=== PATIENT | female | born 2000 | race Caucasian/White ===

== ENCOUNTER 2024-12-11 13:41 | Outpatient (AMB) | payer OTHER, SELFPAY ==
--- NOTE | 2024-12-11 13:48 | A.OFFPC_ITS ---
Vital Signs 12/11/24 13:53 Height 5 ft 4 in Weight 166 lb BMI 28.5 BP 108/67 Blood Pressure Location Lt brachial Position Sitting Respiration 12 Pulse 60 Pulse Source Pulse Oximeter Temp 97.2 F Temp Source Oral Pulse Oximetry (%) 99 Oxygen Delivery Method Room Air Intake Visit Reasons: est care/ PE Intake Note: New patient to establish care and cpe Oncology Transplant Network Manager Required: No Allergies No Known Allergies Allergy (Verified 12/11/24 13:59) Medication List - Last Reconciled 12/10/24 by NITO GuzmanP- aspirin 81 mg PO DAILY ferrous gluconate 324 mg PO Q OTHER DAY progesterone micronized 200 mg vaginal BEDTIME Tobacco use date assessed: 12/11/24 Dental Screening Dental Screen Date: 12/11/24 Did you have a dental visit in the last 12 months?: Yes Did you have a dental problem in the last 6 months where you did not have access to dental care?: No Was dental information given to patient?: Patient has dentist HPI HPI Comments History of Present Illness Details 24 yo F with Iron Def Anemia,hx of heada ches, currently preg (due January 17) Social: administrative support clerk, , . Surgery: tonsillectomy in childhood Fhx: Reports family healthy. Health Maintenance Tdap advised to ask Ob Pap Nikki, has never had one; will have her first one after of dtr Specialists [facility] Nikki Here today to est care for a CPE No records, previous care in [place] Conchita Mistry [employer]IC[employer] Currently : w/ first baby, girl, Lu Owen 01/17/25; has a short cervix. Iron def anemia - taking Iron w/o GI side effects HX of headaches, related to stress; no current issues Optho - does not wear glasses Skin: no issues Developed a sore throat and sneezing 2 days ago. Tx w/ gargle w/ + effect. ROS Constitutional: Denies fever. Skin: Denies rash. Eye: Denies eye pain. ENMT: Denies nasal congestion. Respiratory: Denies shortness of breath and cough. Gastrointestinal: Denies nausea, vomiting or abdominal pain. Cardiovascular: Denies chest pain and syncope. Genitourinary: Denies dysuria. Musculoskeletal: Denies back pain and extremity pain. Neurologic: Denies headaches, confusion, and weakness. Psychiatric: Denies suicidal thoughts and substance abuse. Allergy/ Immunologic: Denies impaired immunity. Exam General: Well developed, well nourished, in no acute distress. Appears stated age. Head: Normocephalic, atraumatic. Eyes: Pupils are equal, round and reactive to light and accommodation. Conju nctivae are clear. Vision grossly normal. Ears: TMs clear AU, EACS WNL Nose: Patent, without discharge. Mouth: There are no ulcers or lesions noted. No inflammation, no post nasal drip, no plaques nor exudates. Neck: Supple, no adenopathy or thyromegaly. Lungs: Clear to auscultation bilaterally. No rales, rhonchi or wheeze noted. Good air flow in all leone. Heart: Regular rate and rhythm. No murmurs, click, rubs or gallops are noted. Abdomen: Gravid abd, Bowel sounds present in all quadrants. The abdomen is soft, nontender, with no masses or organomegaly noted. No hernias are noted. Musculoskeletal: Joints are nontender, without swelling, redness, or effusions. Range of motion is observed to be normal. Pulses: Peripheral pulses are equal and palpable bilaterally. Extremities: No clubbing, cyanosis nor edema is noted. Neurologic: Gait and station normal. Cranial Nerves 2-12 intact. Motor strength grossly symmetrical and intact. No sensory loss. Balance normal. Skin: No rashes, ulcers, or lesions noted. Turgor is good. Skin color is good. Hair and nails are without abnormalities. Psych: Normal eye contact, affect and mood appropriate, and normal interactions. Patient is alert and appropriate to context. Plan: Get records Ask [facility] about Tdap Get pap as scheduled Supportive care for sore throat, try claritin. Seek care if worsening RTO about 12 weeks after to check in, sooner if needed. An additional 30 minutes was spent addressing the problem(s) noted at todays visit. This includes time spent before the visit reviewing the chart, time spent during the visit, and time spent after the visit on documentation reviewing laboratory results, diagnostic imaging, medications, performing a medically necessary evaluation, counseling on diagnoses, care coordination, ordering appropriate tests, ordering appropriate medications, review of tests performed by other providers, reporting test results with the patient, communication with other healthcare providers. [facility] Medical History (Updated 12/11/24 @ 14:18 by Deborah Galeano [facility]) Headache No pertinent family history Surgical History (Updated 12/11/24 @ 13:57 by Susan Brambila MA) Hx of tonsillectomy (~2003) Social History Household Members: Spouse Both parents involved: No Caregiver staying overnight: No Housing: Apartment Are you a primary critical care registered nurse to a significant other at home: No Do you presently have visiting nurse or other home services: No 75 years or older and lives alone: No Alcohol intake: never Patient Tobacco Use Status: Never used Tobacco e-Cigarette/Vaping Use: Never Used Second Hand Smoke Exposure: No Current occupational status: employed Current occupation: hospce nurse Cognitive needs: No Hearing needs: No Vision needs: No Questionnaire PHQ-9 Over the last 2 weeks, how often have you been bothered by any of the following problems? 1. Little interest or pleasure in doing things: not at all 2. Feeling down, depressed, or hopeless: not at all 3. Trouble falling or staying asleep, or sleeping too much: not at all 4. Feeling tired or having little energy: not at all 5. Poor appetite or overeating: not at all 6. Feeling bad about yourself - or that you are a failure or have let yourself or your family down: not at all 7. Trouble concentrating on things, such as reading the newspaper or watching television: not at all 8. Moving or speaking so slowly that other people could have noticed. Or the opposite - being so fidgety or restless that you have been moving around a lot more than usual: not at all 9. Thoughts that you would be better off or of hurting yourself in some way: not at all Total score: 0 Depression Screening Interpretation: Negative Depression Screening Done: Yes 53815 - PHQ-9 Billing: Yes Source: Developed by Drs. Clay Stover, Sarahi Tapia, Paulino Delgado and colleagues, with an educational maria de jesus from [employer]. Thrive Questionnaire Date Thrive assessed: 12/11/24 I am a: Patient What is your living situation today?: I have a steady place to live Within the past 12 months, did the food you bought not last and you didn't have the money to get more?: Never true Within the past 12 months, did you worry whether your food would run out before you got money to buy more?: Never true Do you have trouble paying for medicines?: No Do you have trouble getting transportation to medical appointments?: No Do you have trouble paying your heating and electricity bill?: No Do you have trouble taking care of your child, family member or friend?: No Do you have trouble with day-to-day activities such as bathing, preparing meals, shopping, managing finances, etc.?: No Are you currently unemployed and looking for a job?: No Are you interested in more education?: No Please select the resources that you would like help with: None Currently or been in a relationship where the following occur: No concerns repo rted THRIVE Score: 0 AUDIT C Alcohol Use Questionnaire (AUDIT-C) 1. How often do you have a drink containing alcohol?: Never 3. How often do you have six or more drinks on one occasion?: Never Total Score: 0 Score Reviewed/Action Taken: Yes SARA-7 AMB Questionnaire SARA-7 Date SARA - 7 assessed: 12/11/24 Feeling nervous, anxious, or on edge: 0 = Not at all Not being able to stop or control worryin = Not at all Worrying too much about different things: 0 = Not at all Trouble relaxin = Not at all Being so restless that it is hard to sit still: 0 = Not at all Becoming easily annoyed or irritable: 0 = Not at all Feeling afraid as if something awful might happen: 0 = Not at all Total SARA-7 score (0-4 normal; 5-9 mild; 10-14 moderate; 15-21 severe): 0 Source: Developed by Drs. Clay Stover, Sarahi Tapia, Paulino Delgado and colleagues, with an educational maria de jesus from [employer]. SARA-7 Assessment Billing SARA-7 Assessment Tool: SARA-7 Assessment 00893 Physical exam (Primary Care) Tobacco/Smoking Status: Tobacco use Status Tobacco use date assessed 12/11/24 12/11/24 13:52 Patient Tobacco Use Status Never used Tobacco 12/11/24 13:52 e-Cigarette/Vaping Use Never Used 12/11/24 13:52 PHQ-9: PHQ-9 Score PHQ-9: Total score 0 12/11/24 13:52 Depression Screening Interpretation: Negative Thrive Assessment: Date of Thrive Assessment Date Thrive assessed 12/11/24 12/11/24 13:52 Currently or been in a relationship where the following occur: No concerns reported Coding Level of Care Code New Pt Level 3 (55900) New Pt Prev Care 18-39yr(21808 Diagnoses Encounter to establish care Z76.89 Iron deficiency anemia, unspecified iron deficiency anemia type D50.9 Iron deficiency anemia type: unspecified iron deficiency and not yet delivered Z34.90 History of headache Z87.898 Pharyngitis, unspecified etiology J02.9 Pharyngitis/tonsillitis etiology: unspecified etiology Encounter for general adult medical examination with abnormal findings Z00.01 Additional Codes SARA-7 Assessment Billing - SARA-7 Assessment Tool: SARA-7 Assessment 07926 ([id number]) PHQ-9 - 81528 - PHQ-9 Billing: Yes ([id number]) Assessment & Plan Assessment & Plan (1) Encounter to establish care: Code(s): Z76.89 - Persons encountering health services in other specified circumstances (2) Iron deficiency anemia: Code(s): D50.9 - Iron deficiency anemia, unspecified Category: Medical Qualifiers: Iron deficiency anemia type: unspecified iron deficiency Qualified Code(s): D50.9 - Iron deficiency anemia, unspecified (3) and not yet delivered: Code(s): Z34.90 - Encounter for supervision of normal , unspecified, unspecified trimester Category: Medical (4) History of headache: Code(s): Z87.898 - Personal history of other specified conditions Category: Medical (5) Pharyngitis: Code(s): J02.9 - Acute pharyngitis, unspecified Qualifiers: Pharyngitis/tonsillitis etiology: unspecified etiology Qualified Code(s): J02.9 - Acute pharyngitis, unspecified (6) Encounter for general adult medical examination with abnormal findings: Onset Date: ~12/11/24 Code(s): Z00.01 - Encounter for general adult medical examination with abnormal findings Category: Medical Plan . Patient Instructions: Walk-In Care (Urgent Care): We Make it Easy Walk-in for urgent medical issues such as: ? Seasonal Allergies ? Insect Bites ? Cough ? Diarrhea ? Acute Asthma Attacks ? Back, Knee or Joint Pain ? Ear Infection ? Fever without a Rash ? Headaches ? Nausea ? [place] [facility], Rash or Skin Irritation ? Sore Throat ? Sports Physicals ? Vomiting Most insurances are accepted. Patients do not need to be part of the [facility] to seek care at the walk-in clinic. Locations [address] [facility] [place] [address] ? [phone] [facility] Walk-In Care in [place] provides services to ages 18 and over. Open Sunday-Sunday: 8 a.m. to 5 p.m. and Sunday: 9 a.m. to 3 p.m.* *Hours may vary due to staffing availability. To confirm Walk-In Care hours in [place], please call [phone]. [address] [place] [address] ? [phone] [facility] Walk-In Care in [place] provides services to ages 12 and over. Open Sunday-Sunday: 8 a.m. to 5 p.m. Hours may vary due to staffing availability. To confirm Walk-In Care hours in [place], please call [phone]. LABORATORY SERVICES: [facility] Lab ? Primary Location [address] [place] [address] Sunday through Sunday 6:00 AM ? 5:00 PM Sunday 7:00 AM ? 11:00 AM* [phone] The [facility] Lab is centrally located near the front entrance of the [facility] for easy outpatient access. Convenient parking is provided for outpatients. *Hours may vary due to staffing availability. To confirm Laboratory hours for any location, please call [phone]. Offsite Location For your convenience, we offer offsite laboratory draw stations at the following locations: [address] [place] [address] ? [facility] [address], [address] Sunday through Sunday 7:30 AM ? 1:00 PM* [phone] *Hours may vary due to staffing availability. To confirm Laboratory hours for any location, please call [phone]. [place] ? [address] Sunday through Sunday 6:00 AM ? 3:30 PM* Sunday 6:30 AM ? 3 PM* [phone] *Hours may vary due to staffing availability. To confirm Laboratory hours for any location, please call [phone]. [address] [facility] Sunday through Sunday 7:30 AM ? 4:00 PM* [phone] *Hours may vary due to staffing availability. To confirm Laboratory hours for any location, please call [phone]. [address] [facility] Sunday through 9:00 AM ? 4:00 PM* *Hours may vary due to staffing availability. To confirm Laboratory hours for any location, please call [phone]. Appointments are not necessary. Walk-ins are welcome. Like all the departments throughout the [facility], our Lab undergoes frequent reviews to ensure the quality and accuracy of test results, and our staff takes special pride in its status as a nationally accredited facility. Patient Portal: ONE PATIENT. ONE RECORD. BETTER CARE. [facility] has a fully integrated, cutting-edge mobile electronic health information system that has revolutionized the way we care for our patients and manage our organization. This system improves communication and coordination enabling us to provide safe, higher-quality care, and an overall positive experience for staff and patients. Our first priority, as always, is to deliver the highest quality care possible. The system is running in the background supporting that priority. This portal is for all [facility] and [facility] services and practices. If you are experiencing any technical difficulties with enrolling or logging into the Patient Portal please complete the [facility] Patient Portal Technical Support Form. [facility] now offers a new secure on-line interactive tool for patients to review their health information ? ?Patient Portal. This interactive web portal will enable patients and their families to take an active role in their care by providing easy, secure access to their health information via the internet. The Patient Portal provides patients with instant access to their health information, including laboratory results, medications, allergies, demographic information, visit history, and more. In addition to managing their own care, parents and health care proxies with authorized consent will appreciate the ability to access the records of those individuals for whom they provide care. Please note: if you wish to gain access (Proxy) to another patient?s portal, you will be required to come to the Medical Records Department in person at [facility]. Both the patient giving proxy access and the proxy will need to provide photo identification and complete the appropriate authorization. The Patient Portal also allows track their appointments online. The [facility] Patient Portal also saves patients time by allowing them to submit updates to their demographic and contact information prior to their visits. Portal email notifications will also alert patients to any new activity on their portal, such as test results and new appointments. In order to initially enroll in the [facility] Patient Portal, you will need to enter some required information including the following: * your [facility] Medical Record number * your personal home email address * name * date of Please note: In order to enroll in the [facility] Patient Portal, we need to have your email address on file in your electronic medical record. ?The email address needs to be specific for one person (yourself) in order for your Portal enrollment to be successful. ?You can update your email address in person with our Registration staff when you are registering for a hospital visit. ?Otherwise, you will need to come to the Health Information Management (Medical Records) Department at [facility]. ?We are open from Sunday ? Sunday from 7:30 a.m. ? 4:30 p.m. ?You will be required to present a photo id. Once you have successfully enrolled in the Patient Portal, you will receive a one-time user id and password for the Portal, sent to your email address. ?This will allow you to log into the Patient Portal within 99 hrs and reset your own logon id and password, and define personal security questions. ?Once your permanent login and password have been set, you can log into the [facility] Patient Portal at any time via the blue button above or from the Portal Logon button on any page of the [facility] website. [facility] encourage all of our patients to enroll in Patient Portal as it presents a valuable opportunity for patients a nd their families to actively participate in their care and stay healthy Welcome to [facility]. ?We look forward to working with you. Health screenings for women You should visit your health care provider from time to time, even if you are healthy. The purpose of these visits is to: Screen for medical issues Assess your risk for future medical problems Encourage a healthy lifestyle Update vaccinations and other preventive care services Help you get to know your provider in case of an illness Information Even if you feel fine, you should still see your provider for regular checkups. These visits can help you avoid problems in the future. For example, the only way to find out if you have high blood pressure is to have it checked regularly. High blood sugar and high cholesterol levels also may not have any symptoms in the early stages. A simple blood test can check for these conditions. There are specific times when you should see your provider or receive specific health screenings. The [place] Preventive Services Task Force publishes a list of recommended screenings. Below are screening guidelines for women ages 18 to 39. BLOOD PRESSURE SCREENING Your blood pressure should be checked at least once every 3 to 5 years if: Your blood pressure is in the normal range (top number less than 120 mm Hg and bottom number less than 80 mm Hg) You don't have risk factors for high blood pressure Ask your provider if you need your blood pressure checked more often if: The top number is 120 to 129 mm Hg or the bottom number is 70 to 79 mm Hg You have diabetes, heart disease, kidney problems, are overweight, or have certain other health conditions You have a first-degree relative with high blood pressure You are Black You had high blood pressure during a If the top number is 130 mm Hg or greater or the bottom number is 80 mm Hg or greater, this is considered stage 1 hypertension. Schedule an appointment with your provider to learn how you can reduce your blood pressure. Watch for blood pressure screenings in your area. Ask your provider if you can stop in to have your blood pressure checked. BREAST CANCER SCREENING Experts do not agree about the benefits of breast self-exams in finding breast cancer or saving lives. Talk to your provider about what is best for you. A screening mammogram is not recommended for most women under age 40. Your provider may discuss and recommend mammograms, MRI scans, or ultrasounds if you have an increased risk for breast cancer, such as: A mother or sister who had breast cancer at a young age (most often starting screening earlier than the age the close relative was diagnosed) You carry a high-risk genetic marker CERVICAL CANCER SCREENING Cervical cancer screening should start at age 21 years unless your provider advises otherwise. After the first test: Women ages 21 through 29 should have a Pap test every 3 years. Exoprts do not agree on whether HPV testing is recommended for this age group. Women ages 30 through 65 should be screened with either a Pap test every 3 years or the HPV test every 5 years or both tests every 5 years (called cotesting ). Women who have been treated for precancer (cervical dysplasia) should continue to have Pap tests for 20 years after treatment or until age 65, whichever is longer. If you have had your uterus and cervix removed (total hysterectomy), and you have not been diagnosed with cervical cancer or precancer (high grade cervical neoplasia), you do not need cervical cancer screening. CHOLESTEROL SCREENING Cholesterol screening should begin at: Age 45 for women with no known risk factors for coronary heart disease Age 20 for women with known risk factors for coronary heart disease Repeat cholesterol screening should take place: Every 5 years for women with normal cholesterol levels More often if changes occur in lifestyle (including weight gain and diet) More often if you have diabetes, heart disease, kidney problems, or certain other conditions DIABETES SCREENING You should be screened for diabetes starting at age 35 and then repeated every 3 years if you have no risk factors for diabetes. Screening may need to start earlier and be repeated more often if you have other risk factors for diabetes, such as: You have a first degree relative with diabetes. You are overweight or have obesity. You have high blood pressure, prediabetes, or a history of heart disease. Screening for diabetes should be done if you are planning to become and you are overweight and have other risk factors such as high blood pressure. DENTAL EXAM Go to the dentist once or twice every year for an exam and cleaning. Your dentist will evaluate if you need more frequent visits. EYE EXAM Have an eye exam every 5 to 10 years before age 40. If you have vision problems, have an eye exam every 2 years or more often if recommended by your provider. You should have an eye exam that includes an examination of your retina (back of your eye) at least every year if you have diabetes. IMMUNIZATIONS Commonly needed vaccines include: Flu shot: get one every year. COVID-19 vaccine: ask your provider what is best for you. Tetanus-diphtheria and acellular pertussis (Tdap) vaccine: have one at or after age 19 as one of your tetanus-diphtheria vaccines if you did not receive it as an adolescent. Tetanus-diphtheria: have a booster (or Tdap) every 10 years. Varicella vaccine: receive 2 doses if you never had chickenpox or the varicella vaccine. Hepatitis B vaccine: receive 2, 3, or 4 doses, depending on your exact circumstances. Measles, mumps, and rubella (MMR) vaccine: receive 1 to 2 doses if you are not already immune to MMR. Your provider can tell you if you are immune. Ask your provider about the human papillomavirus (HPV) vaccine if: You have not received the HPV vaccine in the past You have not completed the full vaccine series (you should catch up on this shot) Ask your provider if you should receive other immunizations if you have certain health problems that increase your risk for some diseases such as pneumonia. INFECTIOUS DISEASE SCREENING Women who are sexually active should be screened for chlamydia and gonorrhea up until age 25. Women 25 years and older should be screened for chlamydia and gonorrhea if at high risk. Screening for hepatitis C: All adults ages 18 to 79 should get a one-time test for hepatitis C. people should be screened at every . Screening for human immunodeficiency virus (HIV): All people ages 15 to 65 should get a one-time test for HIV. Depending on your lifestyle and medical history, you may also need to be screened for infections such as syphilis and HIV, as well as other infections. PHYSICAL EXAM All adults should visit their provider from time to time, even if they are healthy. The purpose of these visits is to: Screen for disease Assess your risk of future medical problems Encourage a healthy lifestyle Update your vaccinations and other preventive care services Maintain a relationship with a provider in case of an illness Your height, weight, and BMI should be checked at every exam. During your exam, your provider may ask you about: Depression and anxiety Diet and exercise Alcohol and tobacco use Safety issues, such as using seat belts, smoke detectors, and intimate partner violence Your medicines and risk for interactions SKIN SELF-EXAM Your provider may check your skin for signs of skin cancer, especially if you're at high risk, such as if you: Have had skin cancer before Have close relatives with skin cancer Have a weakened immune system OTHER SCREENING Talk with your provider about colon cancer screening if you have a strong family history of colon cancer or polyps, or if you have had inflammatory bowel disease or polyps yourself. Routine bone density screening of women under 40 is not recommended.
[2024-12-11 13:53] VITALS: BP 108/67; PULSE 60; RESP 12; TEMP 36.2; O2SAT 99; BMI 28.5
--- OUTSIDE RECORDS SUMMARY | 2024-12-11 14:52 | XMS_ITS | Clinical Summary ---
Author Organization [facility] Address [address] [place] [address] Phone Care Team Providers Care Balloon Sander Name Role Phone Faby Goodson Primary Care Provider [phone] Allergies No known active allergies Medications vit,calc76/iron /folic (PNV 29-1 ORAL) Take 1 tablet by mouth 1 (one) time each day. Active aspirin 81 mg EC tablet Take 1 tablet (81 mg total) by mouth 1 (one) time each day. 60 tablet 3 5 09/04/19 26 Active ferrous gluconate (FERGON) 324 mg (38 mg iron) tablet Take 1 tablet (324 mg total) by mouth every other day. 45 tablet 2 5 Active progesterone (PROMETRIUM) 200 mg capsule Insert 1 capsule (200 mg total) into the vagina at bedtime for 21 doses. 21 capsule 5 12/26/19 25 Active progesterone (PROMETRIUM) 200 mg capsule Insert 1 capsule (200 mg total) into the vagina at bedtime. 90 capsule 2 5 12/05/19 25 Discontinu ed(Reorder ) Active Problems Problem Noted Date Diagnosed Date Anemia affecting in second trimester 0 10/09/2024 Vaginal septum 09/09/2024 Overview (11/04/2024): Discussed plan for perineal massage and will stay to the right, larger space. Discussed possible removal of septum at time of delivery. Explained may or may not tear. May need to be a procedure at a later date. Will see how things go. She plans to have natural labor before pain meds as long as possible, but open to pain meds prn. Progressive shortening of cervix 09/03/2024 Overview (10/07/2024): 09/03- Cervix- 2.3cm long- Pt started on nightly progestin until 36 weeks Cultures obtained to rule out infections Repeat cervical length in 1 week 09/10- The cervix is 2.58 cm long. It is closed without funneling or dynamic changes. Consider cerclage if continues to shorten prior to 24 weeks 09/17 The cervix is 2.47 cm long. It is closed without funneling or dynamic changes. - The findings were conveyed to the patient by Dr. Jasso during the ultrasound- per patient plan is to continue vaginal progesterone. Assessment & Plan (09/03/2024 4:13 PM EDT): Prometrium started. Cultures sent. Return for cervical length is scheduled. ASA started as not given at IP. Encounter for supervision of normal first in third trimester 08/29/2024 Overview (10/21/2024): [facility]. [facility] [address] [place] [phone] ([phone]) 2. Delivery site: [facility] 3. Mobile Mommas: No 4. Dating criteria: LMP 5. Blood type: O- rhogam 10/21/2024 6. Genetic screening: Date: Result: Panorama: Declined Horizon: Declined Nuchal: Too late to be ordered Survey: 09/03/24 @ 8am MSAFP: 6. GBS: Date: 7. FOB name: Francisco J 8. Plans A. Epidural or other pain management - B. Labor support identified - C. Tdap - Date: 10/21/2024 declines for now Flu - Date: D. Breast or Bottle feed: E. Baby's name - F. Circumcision - 9. Hospital Course: Rh negative, antepartum 08/29/2024 Overview (08/29/2024): O NEG Comments Yes Encounters Date Type Department Care Team Description 12/04/2024 9:30 AM EDT Routine Obstetrics and Gynecology - [address] [phone] Mary Dolan CNM Encounter for supervision of normal first in third trimester (Primary Dx); Progressive shortening of cervix; Anemia affecting in second trimester; 34 weeks gestation of 11/20/2024 10:00 AM EDT Routine Obstetrics and Gynecology - [address] [phone] Mary Dolan CNM Encounter for supervision of normal first in third trimester (Primary Dx); Progressive shortening of cervix; Rh negative, antepartum; Anemia affecting in second trimester; 32 weeks gestation of 11/04/2024 8:30 AM EDT Routine Obstetrics and Gynecology - [address] [phone] Skye Bautista MD Encounter for supervision of normal first in second trimester (Primary Dx); Progressive shortening of cervix; Rh negative, antepartum; Anemia affecting , antepartum; Vaginal septum 10/21/2024 10:00 AM EDT Routine Obstetrics and Gynecology - [address] [phone] Mary Dolan CNM Encounter for supervision of normal first in second trimester (Primary Dx); Rh negative, antepartum; Progressive shortening of cervix; Anemia affecting in second trimester; 28 weeks gestation of ; Need for tetanus, diphtheria, and acellular pertussis (Tdap) vaccine 10/07/2024 8:30 AM EDT Routine Obstetrics and Gynecology [address] [phone] Mary Dolan CNM Encounter for supervision of normal first in second trimester (Primary Dx); Rh negative, antepartum; Progressive shortening of cervix; Vaginal septum; 26 weeks gestation of ; Encounter for screening, unspecified; Screen for STD (sexually transmitted disease) 09/19/2024 4:00 PM EDT Routine Obstetrics and Gynecology - [place] [address] [place] [phone] Ratna Lyn CNM Progressive shortening of cervix (Primary Dx) 09/17/2024 1:00 PM EDT Ancillary Procedure Maternal Medicine - [address] [phone] Cervical shortening affecting 09/10/2024 11:00 AM EDT Ancillary Procedure Maternal Medicine - [address] [phone] Cervical shortening affecting from Last 3 Months Immunizations Name Administration Dates Next Due DTaP (Infanrix) 6wks to less than 7yo ,11/21/2000,02/10/2000,12/05,1999 Hep A, Unspecified 01/31/2011,12/28/2008 Hepatitis B Pediatric (Enger ix B; Recombivax HB) to less than 20 yo 01/19/2001,1999,1999 HiB 11/05/2000, 0,1999,10/04 Influenza Quadrivalent, 0.5m l, preservative free (Fluarix; FluLaval; Fluzone) ages 6mo and older (Afluria) 3yo and older 05/12/2022 MMR, measles mumps and rubel la Live (Priorix; M-M-R II) 12mo and older 02/07/2005,11/05/2000 Meningococcal B, Recombinant (Bexsero) 16yo to less than 24yo 02/05/2018,12/24/2017 Meningococcal MCV4P 04/12/2016,01/31/2011 Polio, Unspecified 02/07/2005, 1,1999,10/04 Rho (D) Immune Globulin 10/21/2024 Tdap Tetanus diptheria acell ular pertussis (Boostrix; Adacel) 7yo and older 02/09/2021,01/31/2011 Varicella live (Varivax) 12m o and older 04/12/2006,09/19/2001 Surgical History Surgery Date Site/Laterality Comments TONSILLECTOMY Medical History Medical History Date Comments Rh negative state in antepartum period Migraines Family History Medical History Relation Name Comments No Known Problems Brother 1 No Known Problems Brother 2 No Known Problems Brother 3 No Known Problems Father Hypertension Maternal Grandmother Stroke Maternal Grandmother No Known Problems Mother Alcohol abuse Paternal Grandfather Liver disease Paternal Grandmother No Known Problems Sister Relation Name Status Comments Brother 1 Alive Brother 2 Alive Brother 3 Alive Father Alive Maternal Grandfather Maternal Grandmother Alive Mother Alive Paternal Grandfather Paternal Grandmother Sister Alive Social History Tobacco Use Types Packs/Day Years Used Date Smoking Tobacco: Never Smokeless Tobacco: Never Tobacco Cessation:Counseling Given: Not Answered Alcohol Use Standard Drinks/Week Comments Never 0 (1 standard drink = 0.6 oz pur e alcohol) Comments Yes Sex and Gender Information Value Date Recorded Sex Assigned at Not on file Legal Sex Female 2:20 PM EST Gender Identity Not on file Sexual Orientation Not on file 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 Not on file Not on file No t on file Obstetrics History Para Term AB IAB SAB Ectopic Multiple Livin g Live Births 1 Date Outcome GA Total Labor Labor/2nd/3rd Weight Sex Type Anes PTL Marcelle A1 A5 Name Clin Current Summary Episode Dates Number of Fetuses Estimated Date of Delivery 06/12/2024 - Present (12/11/2024) 1 01/12/2025 (set by Kasandra Parekh RN on 08/29/2024 based on Last Menstrual Period on 04/07/2024 (Exact Date)) Dating Summary Based On VAN GA Diff Last Menstrual Period on 04/07/2024 (Exact Date) 01/12/2025 Working Ultrasound on 06/12/2024 01/13/2025 -1d GA:9w2d Vitals Pregravid Weight Height TWG (As of 12/11/2024) Pregrav id BMI 64.2 kg (141 lb 9.6 oz) 1.626 m (64 ) 10.5 kg (23 lb 3 .2 oz) 24.29 Date GA Fund Present FHR Mvmt BP Weight Edema Alb Glu Ket Dil/ Eff/Sta 09/03/2024 21w2d 68.6 kg 0// 09/09/2024 22w1d 121/57 68 kg 0// Notes Progress Notes - Routine Pre kelsie - 12/04/2024 - GA:34w3d 12/04/2024 - 34w3d - Mary Dolan CNM Vitals BP: 123/64 Weight: 74.8 kg (164 lb 12.8 oz) Assessment Heart Rate: 140 Fundal Height (cm): 33 cm Movement: Present Presentation: Cephalic Vaginal Drainage Leaking Fluid: No Darling Nation at 34w3d presents for her routine ob visit. She is taking her PNV, iron, and vaginal progesterone as ordered. She denies VB/LOF/ucs. She reports + FM. She has the following concerns tingling in hands, read it was normal. complicated by short cervix. Vital signs reviewed and are normal. Problem reviewed and updated. She will RTO in 2 weeks for routine ob care or PRN. Reviewed with her s/s of labor/reasons to call triage. Discussed GBS for next visit. Reviewed carpal tunnel in and how to manage. Mary Dolan CNM Progress Notes - Routine Pre kelsie - 11/20/2024 - GA:32w3d 11/20/2024 - 32w3d - Mary Dolan CNM Vitals BP: 118/68 Weight: 73.7 kg (162 lb 6.4 oz) Assessment Heart Rate: 150 Fundal Height (cm): 31 cm Movement: Present Vaginal Drainage Leaking Fluid: Araceli Nation at 32w3d presents for her routine ob visit. She is taking her PNV, baby asa, iron, and vaginal progestrone as ordered. She denies VB/LOF/ucs. She reports + FM. She has the following concerns none. complicated by short cervix and anemia. Vital signs reviewed and are normal. Problem reviewed and updated. She will RTO in 2 weeks for routine ob care or PRN. Reviewed with her s/s of labor/reasons to call triage. Mary Dolan CNM Progress Notes - Routine Pre kelsie - 11/04/2024 - GA:30w1d 11/04/2024 - 30 - TimothySkye byrd MD OB Visit: Vitals BP: 121/63 Weight: 72.6 kg (160 lb) Assessment Heart Rate: 150 Fundal Height (cm): 30 cm Movement: Present Presentation: (oblique head right lower quadrant) Vaginal Drainage Leaking Fluid: No 24 y.o. old female at 30w1d. Doing well. Appropriate FM. No LOF/VB/cramping. Her only new concern is septum. Discussed plan for perineal massage and will stay to the right, larger space. Discussed possible removal of septum at time of delivery. Explained may or may not tear. May need to be a procedure at a later date. Will see how things go. She plans to have natural labor before pain meds as long as possible, but open to pain meds prn. Taking ASA, PNV, and prometrium for shortened cervix. Otherwise healthy . Her BP is reviewed and is Normal. This patient has received syphilis testing during this . This patient does not require a urine drug screen. Desires Tubal: NA. Signs and symptoms of labor reviewed including reasons to call triage. Problem List reviewed and updated. RTO 2 weeks. Skye Bautista MD on 11/04/2024 at 8:58 AM EDT Progress Notes - Routine Pre - 10/21/2024 - GA:28w1d 10/21/2024 - - [facility] [place] Depression Scale: In the Past 7 Days I have been able to laugh and see the funny side of things.: As much as I always could I have looked forward with enjoyment to things.: As much as I ever did I have blamed myself unnecessarily when things went wrong.: Not very often I have been anxious or worried for no good reason.: No, not at all I have felt scared or panicky for no good reason.: No, not at all Things have been getting on top of me.: No, I have been coping as well as ever I have been so unhappy that I have had difficulty sleeping.: Not at all I have felt sad or miserable.: Not very often I have been so unhappy that I have been crying.: No, never The thought of harming myself has occurred to me.: Never [place] Depression Scale Total: 2 [place] SCREENING CHARGE (Clinic Only): [id number] 10/21/2024 - - Mary Dolan CNM Vitals BP: 114/67 Weight: 71.8 kg (158 lb 6.4 oz) Assessment Heart Rate: 160 Fundal Height (cm): 27 cm Movement: Present Vaginal Drainage Leaking Fluid: Araceli Nation at 28w1d presents for her routine ob visit. She is taking her PNV, pnv, baby asa, iron, and vaginal progesterone as ordered. She denies VB/LOF/ucs. She reports + FM. She has the following concerns none. complicated by short cervix. Vital signs reviewed and are normal. Problem reviewed and updated. She will RTO in 2 weeks for routine ob care or PRN. Reviewed with her s/s of labor/reasons to call triage. Offered rhogam and tdap today, she accepts rhogam. Reviewed 24-28 week labs, normal, slight anemia. Mary Dolan CNM Progress Notes - Routine Pre kelsie - 10/07/2024 - GA:26w1d 10/07/2024 - - Mary Dolan CNM Vitals BP: 119/60 Weight: 70.6 kg (155 lb 9.6 oz) Assessment Heart Rate: 155 Fundal Height (cm): 26 cm Movement: Present Vaginal Drainage Leaking Fluid: No Darling Nation at 26w1d presents for her routine ob visit. She is taking her PNV, baby asa, and vaginal progestrone as ordered as ordered. She denies VB/LOF/ucs. She reports + FM. She has the following concerns none. complicated by short cervix on vaginal progestrone. Vital signs reviewed and are normal. Problem reviewed and updated. She will RTO in 2 weeks for routine ob care or PRN. Reviewed with her s/s of labor/reasons to call triage. 09/17 he cervix is 2.47 cm long. It is closed without funneling or dynamic changes. 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 Denies any LOF or VB, +FM. O: VSS Fundus 22cm FHR 145 Cx closed 2-3cm, posterior A: no evidence of further cervical shortening P: advised to continue pelvic rest, note given to stop work due to risk of PTB RTO 10/07/2024 for next OB visit or prn with increasing cramping/LBP/ctx, LOF, VB, or DFM Progress Notes - Initial Pre kelsie - 09/09/2024 - GA:22w1d 09/09/2024 - w - Zelda Stafford CNM OB 12 week appt IP: S: Darling is a 24 y.o. year old here for IP visit with her alone today. Her is planned. She and the father of the baby are happy. Patient's last menstrual period was 04/07/2024 (exact date). She is certain of her LMP with irregular cycles. is currently dated by First trimester ultrasound She complains of breast tenderness. She did experience one episode of vaginal bleeding after her appt with digital exam on last week , but denies any further vaginal bleeding or cramping. O: Blood pressure 121/57, pulse 71, weight 68 kg (150 lb), last menstrual period 04/07/2024. See OB physical and labs. Vitals BP: 121/57 Weight: 68 kg (150 lb) Assessment Heart Rate: 145 Fundal Height (cm): 22 cm Movement: Present Vaginal Drainage Leaking Fluid: No Dilation/Effacement/Station Dilation: Closed No results found for: ABORH Lab Results Component Value Date RH Negative 06/12/2024 A: at 22w1d weeks gestation. 1. 22 weeks gestation of 2. Encounter for supervision of normal first in second trimester 3. Rh negative, antepartum 4. Vaginal septum 5. Cervical shortening in second trimester P: Oriented to THoNE MG and anticipated course. Discussed collaborative practice and [facility] delivery. Reviewed healthy eating and normal weight gain in . Encouraged patient to push PO fluids. Counseled about warning signs of the second trimester and how to contact anger control counselor provider. Discussed the benefits of breast feeding and strongly encouraged to consider this. Counseled regarding the diagnosis of anomalies. She was offered a referral to maternal medicine for nuchal lucency/Branford testing. She declines the referral. Continue Prometrium as prescribed Observe Pelvic rest, no sex Okay for light cardio RTO 4 weeks. The patient does not require anesthesia consult. This patient's VTE risk status is low. [place] Depression Scale: In the Past 7 Days I have been able to laugh and see the funny side of things.: As much as I always could I have looked forward with enjoyment to things.: As much as I ever did I have blamed myself unnecessarily when things went wrong.: Not very often I have been anxious or worried for no good reason.: No, not at all I have felt scared or panicky for no good reason.: No, not at all Things have been getting on top of me.: No, I have been coping as well as ever I have been so unhappy that I have had difficulty sleeping.: Not at all I have felt sad or miserable.: No, not at all I have been so unhappy that I have been crying.: No, never The thought of harming myself has occurred to me.: Never [place] Depression Scale Total: 1 Zelda Stafford CNM on 09/09/2024 at 3:51 PM EDT Progress Notes - Routine Pre kelsie - 09/03/2024 - GA:21w2d 09/03/2024 - - Skye Solomon MD OB Visit: Vitals Weight: 68.6 kg (151 lb 3.2 oz) Assessment Heart Rate: 150 Fundal Height (cm): 20 cm Movement: Present Vaginal Drainage Leaking Fluid: No Dilation/Effacement/Station Dilation: Closed 24 y.o. old female at 21w2d. Doing well. + FM. No LOF/VB/cramping. Her only new concern is new finding of shortened cervix at [facility] today. No signs of labor. No discharge or itching, burning. Otherwise healthy . Her BP is reviewed and is Normal. Aneuploidy screening reviewed; it is Normal. MSAFP not done . She does not require a urine drug screen. Signs and symptoms of labor reviewed including reasons to call triage. Problem List reviewed and updated. RTO 4 weeks. Progressive shortening of cervix Prometrium started. Cultures sent. Return for cervical length is scheduled. ASA started as not given at IP. Skye Bautista MD on 09/03/2024 at 4:20 PM EDT Progress Notes - Clinical [place] pport - 08/29/2024 - GA:20w4d 08/29/2024 - - Kasandra Parekh, LUCIA Darling Nation is a 24 y.o. old female at 20w4d. This is Planned. The patient feels happy about the . The FOB is happy. Pt moved to area with Francisco J recently . She has been receiving care at [facility]. All records received and reviewed by provider. 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 Her has been uncomplicated and has declined NIPT screening at previous OBGYN and today when offered. Anatomy scan ordered and scheduled for 09/03/24 @ 8am. Patient's last menstrual period was 04/07/2024 (exact date). (exact date)., which would make her currently 20w4d with an Estimated Date of Delivery: 01/12/25. She is certain of her date. An ultrasound has not been ordered to confirm dating Patient has significant history of: No previous history of OB Past Medical History: Have you had or do you currently have: Diabetes? No Hypertension? No Heart disease, Mitral valve Prolapse, or Rheumatic fever? No An Autoimmune disease such as Lupus or Rheumatoid Arthritis? No Epilepsy, Seizures, or Spells? No Migraine Headaches? Migraines Stroke or loss of function or sensation? No Additional Questions: Have you ever been treated for anxiety and/or depression? No Are you having problems with crying spells or loss of self-esteem? No Have you ever required psychiatric care? No Have you ever had hepatitis, liver disease or jaundice? No Have you ever been treated for blood clots in your veins, deep venous thrombosis, inflammation in the veins, thrombosis, phlebitis, pulmonary embolism or varicosities? No Have you had excessive bleeding after surgery or dental work? No Do you bleed more than other women after a cut or scratch? No Do you have a history of anemia? No Have you ever had Thyroid problems or taken Thyroid medications? No Do you have any other Endocrine Problems (ie. PCOS)? No Have you ever been in a major accident or suffered serious trauma? No Within the last year, has anyone hit, slapped, kicked or otherwise hurt you? No In the last year, has anyone forced you to have sex when you didn't want to? No Do you feel safe at home? Yes Have you ever received a blood transfusion? No Would you refuse a blood transfusion if a doctor judged to be medically necessary? No Would you rather than receive a blood transfusion? No If you answered yes to the above questions, is this for orthodoxy reasons? No Do you know what your blood type is or if you are Rh Negative? Yes Have you ever had abnormal antibodies in your blood? No Have you ever had asthma? No Have you every had Tuberculosis? No Have you ever had any breast problems? No Have you ever breast fed? No Have you ever had any gynecological surgical procedures such as cervical conization, LEEP procedure, Laser treatment, cryosurgery of the cervix or dilation and curettage, etc? No Have you had any other surgical procedures? Yes tonsilectomy Have you ever been hospitalized overnight for a non-surgical reason excluding normal delivery? No Have you ever had anesthesia complications? No Have you ever had an abnormal pap smear? No Do you have a history of abnormalties of the uterus? No Did your mother take CASI or any other hormones when she was with you? No Did it take more than one year to become ? No Have you ever been evaluated or treated for infertility? No Is there a history of medical problems in your family which you feel might adversely affect your health or ? No Do you have any other problems we have not asked you about which you feel may be important for us to know for this ? No Do you currently have any of the following symptoms since your last menstrual period: Abdominal pain, blood in the stool or urine, chest pain, shortness of breath, coughing or vomiting up blood, your heart racing or skipping beats, nausea and/or vomiting, pain on urination, or vaginal discharge or vaginal bleeding? No OB Infection History: Do you object to being tested for Hepatitis B? No Do you object to being tested for HIV? No Do you feel that you are at high risk for coming contact with the AIDS virus? No Have you ever been treated for tuberculosis? No Have you ever received the BCG vaccine? No Have you ever had a positive skin test for Tuberculosis? No Do you live with someone who has Tuberculosis? No Have you ever been exposed to Tuberculosis? No Do you have Genital Herpes? No Does your partner have Genital Herpes? No Have you had a rash or viral illness since your last period? No Have you ever had Gonorrhea, Chlamydia, Syphilis, Venereal Warts, Trichomoniasis, Pelvic Inflammatory Disease (PID) or any other sexually transmitted disease? No Do you know if you are a Group B Streptococcus Carrier? No Did you have the Chicken Pox/Varicella? No Were you vaccinated against Chicken Pox/Varicella? Yes Have you had any other infectious diseases? No Darling Nation has been instructed on the following: random urine drug screening policy and an initial urine drug screen has been ordered., She has been counseled regarding avoiding hazards, litter boxes, smoking, drug and alcohol use during Darling Nation has also been informed of the market researcher provider recommendation for first trimester nuchal lucency testing to be performed during her . Darling Nation has also been made aware of the time sensitive nature for this testing to be completed. . The patient now has a gestational age of 20w4d. The patient has agreed that she does not want nuchal lucency testing. Ethnicity Based Genetic Testing has been reviewed and the [place] information sheet has been provided to the patient in their After Visit Summary. The patient was also advised that genetic testing may not be covered by all insurances. The patients states that they understand this information. The patient states that she has had the genetic screening for Cystic Fibrosis done in the past during this . Results were NEG. The patient has agreed that she does not want genetic testing for Horizon 14 The following Labs have been ordered: Urine Culture and UDS, T&S She is aware that her insurance may or may not cover [place] and/or Horizon 14 test and discussed [place] only suggs for test(s) - info given today in her after visit summary . She would not like to proceed with testing. Electronically signed by: Kasandra Parekh RN 08/29/24 10:32 AM EST Progress Notes - Routine Pre kelsie - 08/18/2024 - GA:19w0d 08/18/2024 - 19w0d - [employer] MANA[employer] Darling is a 24 y/o 19w0d who presents for routine visit. Overall feeling well + movement Having some Round ligament pain and lightning crotch. Reviewed home remedies, denies any s/sx of infection Patient is still trying to transfer care to [place], is in contact with OBGYN right now that is waiting for records. She will make a 4 week routine OB and let us know if she is able to be seen by new OBGYN prior to that She declined Genetic testing or aFP screening Referral placed to [facility] for anatomy scan. Progress Notes - Initial Pre kelsie - 06/12/2024 - GA:9w3d 06/12/2024 - 9w3d - Adonis Hines NP Subjective Darling SORTO is a 23 y.o. at 9w3d, LMP 04/07/2024 with a working estimated date of delivery of 01/12/2025, by Last Menstrual Period who presents for an initial visit. Nausea and vomiting, Stomach hurts and medeiros making it difficult to eat. HPI OB History Para Term AB Living 1 SAB IAB Ectopic Multiple Live Births # Outcome Date GA Lbr Yeison/2nd Weight Sex Type Anes PTL Lv 1 Current Gynecology History History reviewed. No pertinent past medical history. Past Surgical History: Procedure Laterality Date TONSILLECTOMY Family History Problem Relation Name Age of Onset No Known Problems Mother No Known Problems Father Social History Socioeconomic History Marital status: Spouse name: None Number of children: None Years of education: None Highest education level: None Occupational History None Tobacco Use Smoking status: Never Smokeless tobacco: Never Vaping Use Vaping status: Never Used Substance and Sexual Activity Alcohol use: Never Drug use: Never Sexual activity: Yes Partners: Male control/protection: None Other Topics Concern None Social History Narrative None Current Outpatient Medications Medication Sig Dispense Refill doxylamine-pyridoxine, vit B6, 10-10 mg tablet,delayed release (DR/EC) Take 2 tablets by mouth at bedtime. 180 each 1 famotidine (PEPCID) 20 mg tablet Take 1 tablet (20 mg total) by mouth 2 (two) times a day if needed for heartburn or indigestion. 90 tablet 3 No current facility-administered medications for this visit. No Known Allergies The following portions of the patient's chart were reviewed in this encounter and updated as appropriate: Tobacco Allergies Meds Med Hx Surg Hx Fam Hx Soc Hx Review of Systems Objective Physical Exam OBGyn Exam Assessment/Plan Amenorrhea, primary (Primary) First trimester - ABO Rh; Future - Antibody screen; Future - Chlamydia trachomatis and Neisseria gonorrhoeae, urogenital - Complete blood count; Future - Culture urine - Cystic fibrosis standard carrier mutation panel; Future - Hepatitis B surface antigen with reflex to confirmation; Future - Hepatitis C antibody with reflex to molecular study; Future - HIV 1,2 antibody, p24 antigen with reflex to differentiation; Future - POC Urine Non-Auto W/O Micro - Rubella antibody IgG; Future - Rubeola antibody IgG; Future - Treponema pallidum antibody with reflex to RPR and particle agglutination; Future - Varicella zoster antibody IgG; Future Nausea and vomiting in prior to 22 weeks gestation - doxylamine-pyridoxine, vit B6, 10-10 mg tablet,delayed release (DR/EC); Take 2 tablets by mouth at bedtime. Dispense: 180 each; Refill: 1 Other orders - famotidine (PEPCID) 20 mg tablet; Take 1 tablet (20 mg total) by mouth 2 (two) times a day if needed for heartburn or indigestion. Dispense: 90 tablet; Refill: 3 06/11/2024 TVUS:Single IUP 9w2d VAN: 01/12/2025 FHR: 179 Right Ovarian Complex cyst 2.4cm Denies any vaginal bleeding/cramping/odor/irritation. Complaints of nausea and vomiting with Acid reflux symptoms; she took Tums yesterday with positive relief. Will send in BID Pepdcid 20mg BID PRN and Diclegis. *Patient is currently living in [place]; she is looking about changing her insurance so that she can see OBGYN in [place]. A standard panel of laboratory tests is obtained on every woman at the first visit and was ordered today. Discussed NT and NIPT; pt counseled about what is and is not being screened for, the interpretation of screen positive and negative results, the possibility of false positive and negative results, possible follow-up invasive or noninvasive testing, and possible reproductive choices. Discussed routine care visits; every 4 weeks until 28 weeks gestation, then every 2 weeks until 36 weeks, then weekly until delivery. Advised deliveries at both [facility], reviewed delivery providers and their office locations for appointments. Discussed avoidance of alcohol, drugs, tobacco, vaping, including exposure to second hand smoke. Limit medications to those that are necessary. Limit caffeine intake to 250 mg daily. Reviewed anatomy scan at 20 weeks, and growth scan at 32 weeks. Encouraged to remain active throughout the unless instructed otherwise. Pt made aware that there are male and female providers who may be involved in her care and delivery. Last Filed Vital Signs Vital Sign Reading Time Taken Comments Blood Pressure 123/64 12/04/2024 9:26 AM EDT Pulse 75 12/04/2024 9:26 AM EDT Temperature 36.5 C (97.7 F) 10/21/2024 10:03 AM EDT Respiratory Rate 14 12/04/2024 9:26 AM EDT Oxygen Saturation - - Inhaled Oxygen Concentration - - Weight 74.8 kg (164 lb 12.8 oz) 12/04/2024 9:26 AM EDT Height 162.6 cm (5' 4 ) 09/03/2024 4:02 PM EDT Body Mass Index 28.29 09/03/2024 4:02 PM EDT Plan of Treatment Upcoming Encounters Date Type Department Care Team (Late st Contact Info) Description 12/18/2024 9:30 AM EDT Routine Obstetrics and Gynecology - [address] [id number] Mary Dolan, GEMMA [address] [place] [address] Health Maintenance Due Date Last Done Comments HPV Vaccines (1 - 3-dose series) 2014 Cervical Cancer Screening: Pap Smear 2020 COVID-19 Vaccine ( season) 2024 03/16/2021, 02/23/2021 Depression Screening 05/30/2024 Social Influencers of Health Screening 05/30/2024 Influenza Vaccine (Season Ended) 2025 05/12/2022 DTaP,Tdap,and Td Vaccines (8 - Td or Tdap) 02/09/2031 02/09/2021, 01/31/2011, 02/07/2005, Additional history exists HIB Vaccines Completed 11/05/2000, 01/23, 1999, Additional history exists Hepatitis B Vaccines Completed 01/19/2001, 1999, 1999 IPV Vaccines Completed 02/07/2005, 10/25, 1999, Additional history exists Hepatitis A Vaccines Completed 01/31/2011, 12/29/19 09 Meningococcal ACWY Vaccine Completed 04/12/2016, Meningococcal B Vaccine Completed 02/05/2018, 12/24 HIV Screening Completed 06/12/2024 Hepatitis C Screening Completed 06/12/2024, 024 Gonorrhea/Chlamydia Screening Discontinued 09/03/2024 Pneumococcal Vaccine: Pediatrics (0 to 5 Years) and At-Risk Patients (6 to 64 Years) Aged Out No longer eligible based on patient's age to complete this topic RSV Immunization Patients Under 20 months Aged Out No longer eligible based on patient's age to complete this topic Procedures Procedure Name Priority Date/Time Associated Diagnosis Comments CBC WITH AUTO DIFFERENTIAL Routine 10/07/2024 10:12 AM EDT Encounter for supervision of normal first in second trimester Encounter for screening, unspecified GTT GESTATIONAL 1 HOUR Routine 10:12 AM EDT Encounter for supervision of normal first in second trimester Encounter for screening, unspecified ANTIBODY SCREEN Routine 10/07/2024 10:12 AM EDT Encounter for supervision of normal first in second trimester Encounter for screening, unspecified CBC AND DIFFERENTIAL Routine 10/07/2024 10:12 AM EDT Encounter for supervision of normal first in second trimester Encounter for screening, unspecified GLUCOSE TOLERANCE TEST, 1H GESTATION Routine 10/07/2024 10:12 AM EDT Encounter for supervision of normal first in second trimester Encounter for screening, unspecified TREPONEMA PALLIDUM ANTIBODY WITH REFLEX TO RPR AND PARTICLE AGGLUTINATION Routine 10/07/2024 10:12 AM EDT Encounter for supervision of normal first in second trimester Encounter for screening, unspecified Screen for STD (sexually transmitted disease) US OB LIMITED 1+ FETUSES Routine 09/17/2024 1:23 PM EDT Cervical shortening affecting US OB TRANSVAGINAL Routine 09/17/2024 1: 23 PM EDT Cervical shortening affecting US OB FOLLOWUP PER FETUS Routine 09/10/2024 11:26 AM EDT Cervical shortening affecting US OB TRANSVAGINAL Routine 09/10/2024 11 :26 AM EDT Cervical shortening affecting CHLAMYDIA TRACHOMATIS AND NEISSERIA GONORRHOEAE PCR Routine 09/03/2024 4:14 PM EDT Progressive shortening of cervix HEPATITIS C ANTIBODY WITH REFLEX TO MOLECULAR STUDY Routine 06/12/2024 1:46 PM EST First trimester HIV 1, 2 ANTIBODY, P24 ANTIGEN WITH REFLEX TO DIFFERENTIATION Routine 06/12/2024 1:46 PM EST First trimester from Last 3 Months or Most Recently Relevant to Health Maintenance Results * Treponema pallidum antibody with reflex to RPR and particle agglutination (10/07/2024 10:12 AM EDT) T. Pallidum Antibodies Negative Negative LAB CHEMISTRY METHOD 10/07/2024 4:49 PM EDT [facility] Blood Venous blood specimen / Unknown Venipuncture / Unknown 10/07/2024 10:12 AM EDT 10/07/2024 10:12 AM EDT Mary MENENDEZ LAB BLOOD ORDERABLES Final Resu lt [facility] [address] [place] [address], * GTT gestational 1 hour (10/07/2024 10:12 AM EDT) Glucose, 1 HR Gestational 95 See Comment mg/dL LAB CHEMISTRY METHOD 10/07/2024 1:24 PM EDT [facility] Blood Venous blood specimen / Unknown Venipuncture / Unknown 10/07/2024 10:12 AM EDT 10/07/2024 10:12 AM EDT Narrative [facility] - 10/07/2024 1:24 PM EDT Gestational Diabetes Challenge Reference Range: 1 hour Glucose <140 mg/dL us Mary MENENDEZ LAB BLOOD ORDERABLES Final Resu lt [facility] [address] [place] [address], [place] [phone] * (ABNORMAL) CBC auto differential (10/07/2024 10:12 AM EDT) WBC 7.8 4.8 - 10.8 K/mcL LAB HEMETOLOGY METHOD 10/07/2024 12:30 PM EDT [facility] RBC 3.60(L) 3.80 - 4.80 M/mcL LAB HEMETOLOGY METHOD 10/07/2024 12:30 PM EDT [facility] Hemoglobin 10.9(L) 11.5 - 16.0 g/dL LAB HEMETOLOGY METHOD 10/07/2024 12:30 PM EDT [facility] Hematocrit 31.9(L) 35.0 - 47.0 % LAB HEMETOLOGY METHOD 10/07/2024 12:30 PM EDT [facility] MCV 89.9 79.0 - 98.0 FL LAB HEMETOLOGY METHOD 10/07/2024 12:30 PM EDT [facility] MCH 30.7 27.0 - 32.0 pcg LAB HEMETOLOGY METHOD 10/07/2024 12:30 PM EDT [facility] MCHC 34.2 32.0 - 37.0 g/dL LAB HEMETOLOGY METHOD 10/07/2024 12:30 PM EDT [facility] RDW 13.0 11.0 - 15.0 % LAB HEMETOLOGY METHOD 10/07/2024 12:30 PM EDT [facility] Platelets 263 130 - 400 K/mcL LAB HEMETOLOGY METHOD 10/07/2024 12:30 PM [facility] MPV 10.5 7.0 - 11.0 FL LAB HEMETOLOGY METHOD 10/07[facility]2024 [facility] NRBC 0.0 <1.0 % LAB HEMETOLOGY METHOD 10/07/2024 12:30 [facility] NRBC Absolute 0.00 <0.10 K/mcL LAB HEMETOLOGY METHOD 10/07/2024 12:30 PM [facility] Neutrophils Relative 64.9 % LAB HEMETOLOGY METHOD 10/07/2024 12:30 PM [facility] Lymphocytes Relative 24.4 % LAB HEMETOLOGY METHOD 10/07/2024 12:30 PM [facility] Monocytes Relative 8.3 % LAB HEMETOLOGY METHOD 10/07/2024 12:30 PM [facility] Eosinophils Relative 1.5 % LAB HEMETOLOGY METHOD 10/07/2024 12:30 PM [facility] Basophils Relative 0.3 % LAB HEMETOLOGY METHOD 10/07/2024 12:30 PM [facility] Immature Granulocytes Relative 0.6 % LAB HEMETOLOGY METHOD 10/07/2024 12:30 PM [facility] Neutrophils Absolute 5.03 1.50 - 7.00 K/mcL LAB HEMETOLOGY METHOD 10/07/2024 12:30 PM [facility] Lymphocytes Absolute 1.89 1.00 - 5.00 K/mcL LAB HEMETOLOGY METHOD 10/07/2024 12:30 PM [facility] Monocytes Absolute 0.64 0.20 - 1.00 K/mcL LAB HEMETOLOGY METHOD 10/07/2024 12:30 PM EDT [facility] Eosinophils Absolute 0.12 0.00 - 0.50 K/[facility] LAB HEMETOLOGY METHOD 10/07/2024 12:30 PM EDT [facility] Basophils Absolute 0.02 0.00 - 0.20 K/mcL LAB HEMETOLOGY METHOD 10/07/2024 12:30 PM EDT [facility] Immature Granulocytes Absolute 0.05(H) 0.00 - 0.03 [facility] HEMETOLOGY METHOD 10/07/2024 12:30 PM EDT [facility] Blood Venous blood specimen / Unknown Venipuncture / Unknown 10/07/2024 10:12 AM EDT 10/07/2024 10:12 AM EDT Mary Dolan [facility] BLOOD ORDERABLES Final Resu lt [facility] [address] [place] [address], [place] [phone] * Antibody screen (10/07/2024 10:12 AM EDT) Antibody Screen Negative 10/07/2024 12:39 PM EDT [facility] Blood Venous blood specimen / Unknown Venipuncture / Unknown 10/07/2024 10:12 AM EDT 10/07/2024 10:12 AM EDT us Mary MENENDEZ LAB BLOOD BANK TEST ORDERABLES Final Result [facility] [address] [place] [address], [place] [phone] * US OB Transvaginal (09/17/2024 1:23 PM EDT) Only the most recent of2 resultswithin the time period is included. Anatomical Region Laterality Modality Body Ultrasound 09/17/2024 12:3 4 PM EDT Impressions 09/17/2024 2:11 PM EDT Recommendations / Plan No additional ultrasounds have been scheduled. Follow up as clinically indicated. - The patient has been complaining of some cramping. I reached out to her OB provider, and she will be seen in the office this week. - Narrative 09/17/2024 2:11 PM EDT OBSTETRICS REPORT (Signed Final 09/17/2024 02:11 pm) PATIENT INFO: ID #: [id number] : [birth year] (24 yrs)(F) Name: DARLING NATION Visit Date: 09/17/2024 12:34 pm PERFORMED BY: Attending: Pamela Jasso MD Performed By: Digna Gunn RDMS Referred By: Shannen Alexis CNM Ref. Address: [address] [place] [address] Location: [facility] SERVICE(S) PROVIDED: OB Limited [id number] OB Transvaginal ultrasound [address]684 INDICATIONS: Cervical shortening, second trimester O26.872 23 weeks gestation of Z3A.23 TECHNIQUE/SCAN QUALITY: Technique: Transabdominal & Transvaginal Scan Satisfactory Quality: OB HISTORY: : 1 Term: 0 Jd: 0 SAB: 0 TOP: 0 Ectopic: 0 Livin VITAL SIGNS: Weight (lb) Height BMI 149 5'6 24.05 EVALUATION: Number Of Fetuses: 1 Heart Rate(bpm): 143 Cardiac Activity: Observed Appears regular Presentation: Transverse Placenta Location: Anterior Appearance: Grade 1 Relation to CVX: No previa Amniotic Fluid JOSUÉ FV: Within Normal Limits Largest Pocket(cm) 6.29 Comment: A >2 x 2 cm pocket of fluid is noted. BIOMETRY: GESTATIONAL AGE: LMP: 23w 2d Date: 04/07/24 VAN: 01/12/25 Best: 23w 2d Det. By: LMP (04/07/24) VAN: 01/12/25 STANDARD ANATOMY: Cranium: Normal appearance Stomach: Normal appearance Kidneys: Normal appearance Bladder: Normal appearance COMMENTS: Ms. Nation is being seen for cervical length assessment. - Patient is on vaginal progesterone for a short cervix. Her medical history is not contributory. - Aneuploidy screening was declined in the . - Ultrasound findings: biometry was not performed today. The amniotic fluid volume is normal. The lower legs were seen and appear normal. The anatomical survey is now complete. - The cervix was assessed for risk of and placental location with vaginal ultrasound. The cervix is 2.47 cm long. It is closed without funneling or dynamic changes. - The findings were conveyed to the patient by Dr. Jasso during the ultrasound. Pamela Jasso MD Electronically Signed Final Report 09/17/2024 02:11 pm Procedure Pamela Polo MD - 09/17/2024 OBSTETRICS REPORT (Signed Final 09/17/2024 02:11 pm) PATIENT INFO: ID #: [id number] : [birth year] (24 yrs)(F) Name: DARLING NATION Visit Date: 09/17/2024 12:34 pm PERFORMED BY: Attending: Pamela Jasso MD Performed By: Digna Gunn [facility] Referred By: Shannen Alexis GEMMA Ref. Address: [address] [place] [address] Location: [facility] SERVICE(S) PROVIDED: OB Limited 25878 OB Transvaginal ultrasound 25697 INDICATIONS: Cervical shortening, second trimester O26.872 23 weeks gestation of Z3A.23 TECHNIQUE/SCAN QUALITY: Technique: Transabdominal & Transvaginal Scan Satisfactory Quality: OB HISTORY: : 1 Term: 0 Jd: 0 SAB: 0 TOP: 0 Ectopic: 0 Livin VITAL SIGNS: Weight (lb) Height BMI 149 5'6 24.05 EVALUATION: Number Of Fetuses: 1 Heart Rate(bpm): 143 Cardiac Activity: Observed Appears regular Presentation: Transverse Placenta Location: Anterior Appearance: Grade 1 Relation to CVX: No previa Amniotic Fluid JOSUÉ FV: Within Normal Limits Largest Pocket(cm) 6.29 Comment: A >2 x 2 cm pocket of fluid is noted. BIOMETRY: GESTATIONAL AGE: LMP: 23w 2d Date: 04/07/24 VAN: 01/12/25 Best: 23w 2d Det. By: LMP (04/07/24) VAN: 01/12/25 STANDARD ANATOMY: Cranium: Normal appearance Stomach: Normal appearance Kidneys: Normal appearance Bladder: Normal appearance COMMENTS: Ms. Nation is being seen for cervical length assessment. - Patient is on vaginal progesterone for a short cervix. Her medical history is not contributory. - Aneuploidy screening was declined in the . - Ultrasound findings: biometry was not performed today. The amniotic fluid volume is normal. The lower legs were seen and appear normal. The anatomical survey is now complete. - The cervix was assessed for risk of and placental location with vaginal ultrasound. The cervix is 2.47 cm long. It is closed without funneling or dynamic changes. - The findings were conveyed to the patient by Dr. Jasso during the ultrasound. Pamela Jasso MD Electronically Signed Final Report 09/17/2024 02:11 pm IMPRESSION: Recommendations / Plan No additional ultrasounds have been scheduled. Follow up as clinically indicated. - The patient has been complaining of some cramping. I reached out to her OB provider, and she will be seen in the office this week. - us Shannen MENENDEZ IM OB US PROCEDURES Final Res ult * US OB Limited 1+ Fetuses (09/17/2024 1:23 PM EDT) Anatomical Region Laterality Modality Body Ultrasound 09/17/2024 12:3 4 PM EDT Impressions 09/17/2024 2:11 PM EDT Recommendations / Plan No additional ultrasounds have been scheduled. Follow up as clinically indicated. - The patient has been complaining of some cramping. I reached out to her OB provider, and she will be seen in the office this week. - Narrative 09/17/2024 2:11 PM EDT OBSTETRICS REPORT (Signed Final 09/17/2024 02:11 pm) PATIENT INFO: ID #: [id number] : [birth year] (24 yrs)(F) Name: DARLING NATION Visit Date: 09/17/2024 12:34 pm PERFORMED BY: Attending: Pamela Jasso MD Performed By: Digna Gunn [facility] Referred By: Shannen Alexis [facility] Ref. Address: [address] [place] [address] Location: [facility] SERVICE(S) PROVIDED: OB Limited 80725 OB Transvaginal ultrasound 39[address] INDICATIONS: Cervical shortening, second trimester O26.872 23 weeks gestation of Z3A.23 TECHNIQUE/SCAN QUALITY: Technique: Transabdominal & Transvaginal Scan Satisfactory Quality: OB HISTORY: : 1 Term: 0 Jd: 0 SAB: 0 TOP: 0 Ectopic: 0 Livin VITAL SIGNS: Weight (lb) Height BMI 149 5'6 24.05 EVALUATION: Number Of Fetuses: 1 Heart Rate(bpm): 143 Cardiac Activity: Observed Appears regular Presentation: Transverse Placenta Location: Anterior Appearance: Grade 1 Relation to CVX: No previa Amniotic Fluid JOSUÉ FV: Within Normal Limits Largest Pocket(cm) 6.29 Comment: A >2 x 2 cm pocket of fluid is noted. BIOMETRY: GESTATIONAL AGE: LMP: 23w 2d Date: 04/07/24 VAN: 01/12/25 Best: 23w 2d Det. By: LMP (04/07/24) VAN: 01/12/25 STANDARD ANATOMY: Cranium: Normal appearance Stomach: Normal appearance Kidneys: Normal appearance Bladder: Normal appearance COMMENTS: Ms. Nation is being seen for cervical length assessment. - Patient is on vaginal progesterone for a short cervix. Her medical history is not contributory. - Aneuploidy screening was declined in the . - Ultrasound findings: biometry was not performed today. The amniotic fluid volume is normal. The lower legs were seen and appear normal. The anatomical survey is now complete. - The cervix was assessed for risk of and placental location with vaginal ultrasound. The cervix is 2.47 cm long. It is closed without funneling or dynamic changes. - The findings were conveyed to the patient by Dr. Jasso during the ultrasound. Pamela Jasso MD Electronically Signed Final Report 09/17/2024 02:11 pm Procedure Note Pamela Jasso MD - 09/17/2024 OBSTETRICS REPORT (Signed Final 09/17/2024 02:11 pm) PATIENT INFO: ID #: [id number] : [birth year] (24 yrs)(F) Name: DARLING NATION Visit Date: 09/17/2024 12:34 pm PERFORMED BY: Attending: Pamela Jasso MD Performed By: Digna Gunn RDMS Referred By: Shannen MENENDEZ Ref. Address: [address] [place] [address] Location: [facility] SERVICE(S) PROVIDED: OB Limited 42691 OB Transvaginal ultrasound 339[address] INDICATIONS: Cervical shortening, second trimester O26.872 23 weeks gestation of Z3A.23 TECHNIQUE/SCAN QUALITY: Technique: Transabdominal & Transvaginal Scan Satisfactory Quality: OB HISTORY: : 1 Term: 0 Jd: 0 SAB: 0 TOP: 0 Ectopic: 0 Livin VITAL SIGNS: Weight (lb) Height BMI 149 5'6 24.05 EVALUATION: Number Of Fetuses: 1 Heart Rate(bpm): 143 Cardiac Activity: Observed Appears regular Presentation: Transverse Placenta Location: Anterior Appearance: Grade 1 Relation to CVX: No previa Amniotic Fluid JOSUÉ FV: Within Normal Limits Largest Pocket(cm) 6.29 Comment: A >2 x 2 cm pocket of fluid is noted. BIOMETRY: GESTATIONAL AGE: LMP: 23w 2d Date: 04/07/24 VAN: 01/12/25 Best: 23w 2d Det. By: LMP (04/07/24) VAN: 01/12/25 STANDARD ANATOMY: Cranium: Normal appearance Stomach: Normal appearance Kidneys: Normal appearance Bladder: Normal appearance COMMENTS: Ms. Nation is being seen for cervical length assessment. - Patient is on vaginal progesterone for a short cervix. Her medical history is not contributory. - Aneuploidy screening was declined in the . - Ultrasound findings: biometry was not performed today. The amniotic fluid volume is normal. The lower legs were seen and appear normal. The anatomical survey is now complete. - The cervix was assessed for risk of and placental location with vaginal ultrasound. The cervix is 2.47 cm long. It is closed without funneling or dynamic changes. - The findings were conveyed to the patient by Dr. Jasso during the ultrasound. Pamela Jasso MD Electronically Signed Final Report 09/17/2024 02:11 pm IMPRESSION: Recommendations / Plan No additional ultrasounds have been scheduled. Follow up as clinically indicated. - The patient has been complaining of some cramping. I reached out to her OB provider, and she will be seen in the office this week. - us Shannen Alexis CNM IMG OB US PROCEDURES Final Res ult * US OB Followup per Fetus (09/10/2024 11:26 AM EDT) Anatomical Region Laterality Modality Body Ultrasound 09/10/2024 10:2 8 AM EDT Impressions 09/10/2024 12:17 PM EDT Recommendations / Plan Ms. Rae has been scheduled to return in 1 week on Sunday to reassess cervical length. Narrative 09/10/2024 12:17 PM EDT OBSTETRICS REPORT (Signed Final 09/10/2024 12:17 pm) PATIENT INFO: ID #: [id number] : [birth year] (24 yrs)(F) Name: DARLING NATION Visit Date: 09/10/2024 10:28 am PERFORMED BY: Attending: Alley Shields MD Performed By: Digna Gunn RDMS Referred By: Shannen Alexis CNM Ref. Address: [address] [place] [id number] Location: [facility] SERVICE(S) PROVIDED: [place] [address] OB Transvaginal ultrasound 52158 INDICATIONS: Cervical shortening, second trimester O26.872 22 weeks gestation of Z3A.22 TECHNIQUE/SCAN QUALITY: Technique: Transabdominal & Transvaginal Scan Satisfactory Quality: OB HISTORY: : 2 Term: 1 Jd: 0 SAB: 0 TOP: 0 Ectopic: 0 Livin VITAL SIGNS: Weight (lb) Height BMI 149 5'6 24.05 EVALUATION: Number Of Fetuses: 1 Heart Rate(bpm): 130 Cardiac Activity: Observed Regular rhythm Presentation: Cephalic Placenta Location: Anterior Appearance: Grade 1 Relation to CVX: No previa Amniotic Fluid JOSUÉ FV: Within Normal Limits Largest Pocket(cm) 5.6 Comment: A >2 x 2 cm pocket of fluid is noted. BIOMETRY: GESTATIONAL AGE: LMP: 22w 2d Date: 04/07/24 VAN: 01/12/25 Best: 22w 2d Det. By: LMP (04/07/24) VAN: 01/12/25 STANDARD ANATOMY: Cranium: Normal appearance Stomach: Normal appearance Kidneys: Normal appearance Bladder: Normal appearance CERVIX UTERUS ADNEXA: Cervix Length: 2.58 cm. See Comments Below COMMENTS: Ms. Nation is being seen for cervical length assessment and to complete the anatomical survey with views of the lower legs. - Patient is on vaginal progesterone for a short cervix. She denies bleeding and contractions. She reports that her cervix was closed on digital exam in her provider's office yesterday. - Her medical history is not contributory. - Aneuploidy screening was declined in the . - Ultrasound findings: biometry was not performed today. The amniotic fluid volume is normal. The lower legs were seen and appear normal. The anatomical survey is now complete. - The cervix was assessed for risk of and placental location with vaginal ultrasound. The cervix is 2.58 cm long. It is closed without funneling or dynamic changes. Alley Shields MD Electronically Signed Final Report 09/10/2024 12:17 pm Procedure Alley Corrigan MD - 09/10/2024 OBSTETRICS REPORT (Signed Final 09/10/2024 12:17 pm) PATIENT INFO: ID #: [id number] : [birth year] (24 yrs)(F) Name: DARLING NATION Visit Date: 09/10/2024 10:28 am PERFORMED BY: Attending: Alley Shields MD Performed By: Digna Gunn RDMS Referred By: Shannen Alexis CNM Ref. Address: [address] [place] [id number] Location: [facility]) SERVICE(S) PROVIDED: [place] [id number] OB Transvaginal ultrasound [id number] INDICATIONS: Cervical shortening, second trimester O26.872 22 weeks gestation of Z3A.22 TECHNIQUE/SCAN QUALITY: Technique: Transabdominal & Transvaginal Scan Satisfactory Quality: OB HISTORY: : 2 Term: 1 Jd: 0 SAB: 0 TOP: 0 Ectopic: 0 Livin VITAL SIGNS: Weight (lb) Height BMI 149 5'6 24.05 EVALUATION: Number Of Fetuses: 1 Heart Rate(bpm): 130 Cardiac Activity: Observed Regular rhythm Presentation: Cephalic Placenta Location: Anterior Appearance: Grade 1 Relation to CVX: No previa Amniotic Fluid JOSUÉ FV: Within Normal Limits Largest Pocket(cm) 5.6 Comment: A >2 x 2 cm pocket of fluid is noted. BIOMETRY: GESTATIONAL AGE: LMP: 22w 2d Date: 04/07/24 VAN: 01/12/25 Best: 22w 2d Det. By: LMP (04/07/24) VAN: 01/12/25 STANDARD ANATOMY: Cranium: Normal appearance Stomach: Normal appearance Kidneys: Normal appearance Bladder: Normal appearance CERVIX UTERUS ADNEXA: Cervix Length: 2.58 cm. See Comments Below COMMENTS: Ms. Nation is being seen for cervical length assessment and to complete the anatomical survey with views of the lower legs. - Patient is on vaginal progesterone for a short cervix. She denies bleeding and contractions. She reports that her cervix was closed on digital exam in her provider's office yesterday. - Her medical history is not contributory. - Aneuploidy screening was declined in the . - Ultrasound findings: biometry was not performed today. The amniotic fluid volume is normal. The lower legs were seen and appear normal. The anatomical survey is now complete. - The cervix was assessed for risk of and placental location with vaginal ultrasound. The cervix is 2.58 cm long. It is closed without funneling or dynamic changes. Alley Shields MD Electronically Signed Final Report 09/10/2024 12:17 pm IMPRESSION: Recommendations / Plan Ms. Rae has been scheduled to return in 1 week on Sunday to reassess cervical length. us Shannen Alexis CNM IMG OB US PROCEDURES Final Res ult * Chlamydia trachomatis and Neisseria gonorrhoeae molecular study (09/03/2024 4:14 PM EDT) Neisseria gonorrhoeae PCR Negative Negative LAB MOLECULAR DIAGNOSTICS METHOD 09/04/2024 8:46 AM EDT [facility] Chlamydia trachomatis PCR Negative Negative LAB MOLECULAR DIAGNOSTICS METHOD 09/04/2024 8:46 AM T [facility] Swab Cervix uteri structure / Unknown Non-blood Collection / Unknown 09/03/2024 4:14 PM EDT 09/03/2024 4:14 PM EDT us Skye Bautista MD LAB MICROBIOLOGY - GENERAL ORDERABLES Final Result [facility] ([facility]) [facility] [address] [place] [address], [place] [phone] * Hepatitis C antibody with reflex to molecular study (06/12/2024 1:46 PM EST) HCV Ab Non Reactive Non Reactive [facility] 1 Blood Venous blood specimen / Unknown 06/12/2024 1:46 PM EST 06/12/2024 Narrative [facility] 1 - 06/13/2024 6:09 AM EST Performed at: - [facility] [address] [id number] Security Team Lead: Delphine Ca MD, Phone: [phone] us Angie Hines MANAGER CAR LAB BLOOD ORDERABLES Final Resul t Performing Organization Address City/[facility] Co de Phone Number [facility] 1 * HIV 1,2 antibody, p24 antigen with reflex to differentiation (06/12/2024 1:46 PM EST) HIV Screen 4th Generation wRfx Non Reactive Non Reactive [facility] 1 Comment: HIV-1/HIV-2 antibodies and HIV-1 p24 antigen were NOT detected. There is no laboratory evidence of HIV infection. HIV Negative Blood Venous blood specimen / Unknown 06/12/2024 1:46 PM EST 06/12/2024 Narrative [facility] 1 - 06/13/2024 6:09 AM EST Performed at: - [facility] [address] [id number] Security Team Lead: Delphine Ca MD, Phone: [phone] Angie Hines MANAGER CAR LAB BLOOD ORDERABLES Final Resul t [facility] 1 from Last 3 Months or Most Recently Relevant to Health Maintenance Insurance [facility] Care Teams Balloon Sander Relationship Specialty Start Date End Date Faby Goodson PA [address] [place] [address] PCP - General Physician [employer] 11/19/24
== END 2024-12-11 14:16 | disposition home or self-care (01) ==
PROVIDERS: PCP Nurse Practitioner Family; Visit Provider Nurse Practitioner Family
DX: Z00.01 Encounter for general adult medical examination with abnormal findings (principal); D50.9 Iron deficiency anemia, unspecified; J02.9 Acute pharyngitis, unspecified; Z76.89 Persons encountering health services in other specified circumstances; Z34.90 Encounter for supervision of normal pregnancy, unspecified, unspecified trimester; Z87.898 Personal history of other specified conditions

== ENCOUNTER → 2024-12-11 13:41 | Outpatient (BNVA) | payer OTHER, SELFPAY | PROVIDERS: PCP Nurse Practitioner Family; Visit Provider Nurse Practitioner Family | DX: Z00.01 Encounter for general adult medical examination with abnormal findings (principal); O26.899 Other specified pregnancy related conditions, unspecified trimester; O99.019 Anemia complicating pregnancy, unspecified trimester; D50.9 Iron deficiency anemia, unspecified; J02.9 Acute pharyngitis, unspecified; Z76.89 Persons encountering health services in other specified circumstances; Z87.898 Personal history of other specified conditions | CPT/HCPCS: 96127 ==

== ENCOUNTER 2025-04-06 13:17 | Outpatient (AMB) | payer OTHER, SELFPAY ==
--- NOTE | 2025-04-06 13:19 | A.OFFPC_ITS ---
Vital Signs 04/06/25 13:24 Height 5 ft 4 in Weight 164 lb 6 oz BMI 28.2 BP 102/66 Blood Pressure Location Lt brachial Position Sitting Respiration 12 Pulse 69 Pulse Source Pulse Oximeter Temp 96.9 F Temp Source Oral Pulse Oximetry (%) 99 Oxygen Delivery Method Room Air Intake Visit Reasons: 4-5 months 30 min check Intake Note: follow up. Patient c/o joint px after giving and she's also interested in iron supplement. 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 Allergies No Known Allergies Allergy (Verified 04/06/25 13:28) Medication List - Last Reconciled 04/06/25 by Deborah Galeano, [employer]TER- ferrous gluconate 324 mg PO Q OTHER DAY Tobacco use date assessed: 04/06/25 Dental Screening Dental Screen Date: 04/06/25 Did you have a dental visit in the last 12 months?: Yes Did you have a dental problem in the last 6 months where you did not have access to dental care?: No Was dental information given to patient?: Patient has dentist HPI HPI Comments History of Present Illness Details 24 yo F with Iron Def Anemia,hx of heada juni Social: senior field service engineer, , . Dtr, born December 2025 Surgery: tonsillectomy in childhood Fhx: Reports family healthy. Health Maintenance Tdap Declined. Flu declined 04/06/25 Pap Nikki, has never had one; will have her first one after of dtr Specialist SHIFT MECHANIC Nikki History of Present Illness The patient is a 24-year-old female presenting with knee joint pain and constipation. knee joint pain: - Bilateral knee pain , notice able in the mornings, relieved with movement. - No swelling reported. constipation: - Constipation and discomfort in bowel m ovements . - Ceased iron supplements due to constip ation. - Pain and bleeding noted during bowel m ovements. - + bloating - Denies n/v, fhx CRC. Iron deficiency anemia: - Discontinued iron supplements led to c ravings for iron-rich foods. Post Dtr born w/o complications breast feeding No PPD. Good bonding Menses have not returned Having lower abd cramping Sexually active w/o contraception Chance of Family babysitting while she works 1 day/week. Review of Systems - Musculoskeletal: Reports significant k nee pain bilaterally, especially in the mornings. - Gastrointestinal: Reports constipation with painful and bleeding bowel movements. Denies abdominal pain or bloating. - General: Denies fatigue beyond normal tiredness. - Emotional: Denies mood dist urbances; mood is stable. - Breast: Reports successful breastfeedi ng; denies issues. - Reproductive: Denies return of menses; reports occasional cramping post- coitus. - Genitourinary: Denies urinary symptoms . - Nutrition: Reports dietary high iron c ravings. Physical Exam General: Well developed, well nourished, in no acute distress. Appears stated age. Head: Normocephalic, atraumatic. Eyes: Pupils are equal, round and reactive to light and accommodation. Conjunctivae are clear. Lungs: Clear to auscultation bilaterally. No rales, rhonchi or wheeze noted. Good air flow in all leone. Heart: Regular rate and rhythm. No murmurs, click, rubs or gallops are noted. Abdomen: Bowel sounds present in all quadrants. The abdomen is soft, nontender, with no masses or organomegaly noted. No hernias are noted. Musculoskeletal: Joints are nontender, without swelling, redness, or effusions. Pulses: Peripheral pulses are equal and palpable bilaterally. Extremities: No clubbing, cyanosis nor edema is noted. Psych: Mood and affect appropriate. Mood reported as very good, despite occasional tiredness. Results - Labs: Negative urine test. Discussion Notes For her knee pain, I advised considering assessment for autoimmune issues if symptoms persist. The patient expressed willingness to follow up if symptoms do not resolve. For constipation, potential causes include physiological changes and previous iron supplement usage. I suggested trying MiraLAX and switching to ferrous gluconate to alleviate constipation while addressing iron deficiency. The potential side effects and benefits were discussed, ensuring they align with her status. We also covered the risks and benefits of continuing and care. I advised on ongoing self- monitoring and proper hydration. Follow-up consultations will be necessary if changes in symptoms occur. Patient consented to initiate the discussed interventions and will pursue further specialist consultations if conditions persist. Patient was given time to ask questions. All questions were answered to their satisfaction. Assessment and Plan 1. knee joint pain - Monitor, consider autoimmune etiology if persistent. - Declined further work up At this time 2. constipation - Start MiraLAX, switch to ferrous gluco myron. - Monitor and consult GI if unresolved. 3. Iron deficiency anemia - Continue ferrous gluconate, monitor le vels. TAke every other day If not able to tolerate, please let me know and we can check labs to see if this is even needed. Patient Instructions - Start taking MiraLAX as directed. - Change to ferrous gluconate for iron s upplements. - Contact healthcare provider if knee pa in worsens or persists. - Monitor bowel activity and report any ongoing issues. - Make sure to stay hydrated and maintai n a balanced diet. Consent Patient was informed and verbally consented to the use of an ambient scribe for clinic note documentation during this visit. Total time spent caring for the patient today was 40 minutes. This includes time spent before the visit reviewing the chart, time spent during the visit, and time spent after the visit on documentation, reviewing laboratory results, diagnostic imaging, medications, performing a medically necessary evaluation, counseling on diagnoses, care coordination, ordering appropriate tests, ordering appropriate medications, review of tests performed by other providers, reporting test results with the patient, communication with other healthcare providers. [facility] Medical History (Updated 04/06/25 @ 13:48 by Deborah Galeano, [facility]) Headache No pertinent family history Surgical History (Updated 12/11/24 @ 13:57 by Susan Brambila MA) Hx of tonsillectomy (~2003) Social History (Updated 12/11/24 @ 13:58 by Susan Brambila MA) Household Members: Spouse Both parents involved: No Caregiver staying overnight: No Housing: Apartment Are you a primary career development counselor to a significant other at home: No Do you presently have visiting nurse or other home services: No 75 years or older and lives alone: No Alcohol intake: never Patient Tobacco Use Status: Never used Tobacco e-Cigarette/Vaping Use: Never Used Second Hand Smoke Exposure: No Current occupational status: employed Current occupation: hospce nurse Cognitive needs: No Hearing needs: No Vision needs: No Questionnaire PHQ-9 Over the last 2 weeks, how often have you been bothered by any of the following problems? 1. Little interest or pleasure in doing things: not at all 2. Feeling down, depressed, or hopeless: not at all 3. Trouble falling or staying asleep, or sleeping too much: not at all 4. Feeling tired or having little energy: not at all 5. Poor appetite or overeating: not at all 6. Feeling bad about yourself - or that you are a failure or have let yourself or your family down: not at all 7. Trouble concentrating on things, such as reading the newspaper or watching television: not at all 8. Moving or speaking so slowly that other people could have noticed. Or the opposite - being so fidgety or restless that you have been moving around a lot more than usual: not at all 9. Thoughts that you would be better off or of hurting yourself in some way: not at all Total score: 0 Depression Screening Interpretation: Negative Depression Screening Done: Yes [id number] - PHQ-9 Billing: Yes Source: Developed by Drs. Clay Stover, Sarahi Tapia, Paulino Delgado and colleagues, with an educational maria de jesus from [employer]. Thrive Questionnaire Date Thrive assessed: 04/06/25 I am a: Patient What is your living situation today?: I have a steady place to live Within the past 12 months, did the food you bought not last and you didn't have the money to get more?: Never true Within the past 12 months, did you worry whether your food would run out before you got money to buy more?: Never true Do you have trouble paying for medicines?: No Do you have trouble getting transportation to medical appointments?: No Do you have trouble paying your heating and electricity bill?: No Do you have trouble taking care of your child, family member or friend?: No Do you have trouble with day-to-day activities such as bathing, preparing meals, shopping, managing finances, etc.?: No Are you currently unemployed and looking for a job?: No Are you interested in more education?: No Please select the resources that you would like help with: None Currently or been in a relationship where the following occur: No concerns reported THRIVE Score: 0 SARA-7 AMB Questionnaire SARA-7 Date SARA - 7 assessed: 04/06/25 Feeling nervous, anxious, or on edge: 0 = Not at all Not being able to stop or control worryin = Not at all Worrying too much about different things: 0 = Not at all Trouble relaxin = Not at all Being so restless that it is hard to sit still: 0 = Not at all Becoming easily annoyed or irritable: 0 = Not at all Feeling afraid as if something awful might happen: 0 = Not at all Total SARA-7 score (0-4 normal; 5-9 mild; 10-14 moderate; 15-21 severe): 0 Source: Developed by Drs. Clay Stover, Sarahi Tapia, Paulino Delgado and colleagues, with an educational maria de jesus from [employer]. SARA-7 Assessment Billing SARA-7 Assessment Tool: SARA-7 Assessment 67100 Physical exam (Primary Care) Vital Signs: Last Vital Signs Temp 96.9 F 04/06/25 13:24 Pulse 69 04/06/25 13:24 Resp 12 04/06/25 13:24 BP 102/66 04/06/25 13:24 Pulse Ox 99 04/06/25 13:24 Oxygen Delivery Method Room Air 04/06/25 13:24 BMI result Body Mass Index 28.2 Tobacco/Smoking Status: Tobacco use Status Tobacco use date assessed 04/06/25 04/06/25 13:20 Patient Tobacco Use Status Never used Tobacco 04/06/25 13:20 e-Cigarette/Vaping Use Never Used 04/06/25 13:20 PHQ-9: PHQ-9 Score PHQ-9: Total score 0 04/06/25 13:38 Depression Screening Interpretation: Negative Thrive Assessment: Date of Thrive Assessment Date Thrive assessed 04/06/25 04/06/25 13:20 Currently or been in a relationship where the following occur: No concerns reported Results AMB Test Urine AMB Test Urine Negative Last Edit by Susan Brambila MA on 04/06 13:57 Results Reviewed Results Reviewed: Laboratory Last Values [facility] Clinic Negative 04/06/25 13:46 Coding Level of Care Code Est Pt Level 5 (74817) Complex EM visit Add On G2211 Diagnoses Amenorrhea N91.2 Iron deficiency anemia, unspecified iron deficiency anemia type D50.9 Iron deficiency anemia type: unspecified iron deficiency Constipation K59.00 Knee pain, bilateral M25.561; M25.562 Influenza vaccination declined Z28.21 Tetanus, diphtheria, and acellular pertussis (Tdap) vaccination declined Z28.21 Urine test negative Z32.02 Additional Codes SARA-7 Assessment Billing - SARA-7 Assessment Tool: SARA-7 Assessment 61625 ([id number]) PHQ-9 - 49434 - PHQ-9 Billing: Yes ([id number]) Assessment & Plan Assessment & Plan (1) Amenorrhea: Code(s): N91.2 - Amenorrhea, unspecified Category: Medical (2) Iron deficiency anemia: Code(s): D50.9 - Iron deficiency anemia, unspecified Category: Medical Qualifiers: Iron deficiency anemia type: unspecified iron deficiency Qualified Code(s): D50.9 - Iron deficiency anemia, unspecified (3) Constipation: Code(s): K59.00 - Constipation, unspecified Category: Medical (4) Knee pain, bilateral: Code(s): M25.561 - Pain in right knee; M25.562 - Pain in left knee (5) Influenza vaccination declined: Code(s): Z28.21 - Immunization not carried out because of patient refusal Category: Medical (6) Tetanus, diphtheria, and acellular pertussis (Tdap) vaccination declined: Code(s): Z28.21 - Immunization not carried out because of patient refusal Category: Medical (7) Urine test negative: Code(s): Z32.02 - Encounter for test, result negative Plan . Orders: Orders AMB HCG Urine Test Today N91.2 - Amenorrhea, unspecified Medications: New ferrous gluconate 324 mg PO Q OTHER DAY 45 tabs 0RF
--- OUTSIDE RECORDS SUMMARY | 2025-04-06 13:20 | XMS_ITS | Clinical Summary ---
Author Organization [facility] Address [address] [place] [address] Phone Care Team Providers Care Actionscript Developer Name Role Phone Deborah Galeano Primary Care Provider Allergies No known active allergies Medications vit,calc76/iron/ folic (PNV 29-1 ORAL) Take 1 tablet by mouth 1 (one) time each day. Active ferrous gluconate (FERGON) 324 mg (38 mg iron) tablet Take 1 tablet (324 mg total) by mouth every other day. 45 tablet 2 10/09/2024 Active vitamin iron fum-folic acid 28-0.8 mg per tablet Take 1 tablet by mouth 1 (one) time each day with breakfast. 30 each 2 01/13/2025 Active Active Problems Problem Noted Date Diagnosed Date Vaginal delivery 08/29/2024 Overview (01/12/2025): 1. [facility] site: [facility]: [address] [place] [address] ([phone]) 2. Delivery site: [facility] 3. Mobile Mommas: No 4. Dating criteria: LMP 5. Blood type: O- rhogam 10/21/2024 6. Genetic screening: Date: Result: Panorama: Declined Horizon: Declined Nuchal: Too late to be ordered Survey: 09/03/24 @ 8am MSAFP: 6. GBS: Date: 12/18 negative 7. FOB name: Francisco J 8. Plans A. Epidural or other pain management - Open to options but prefers to go as natural as possible B. Labor support identified - Francisco J Small Tdap - Date: 10/21/2024 declines for now Flu - Date: n/a D. Breast or Bottle feed: E. Baby's name - F. Circumcision - 9. Hospital Course: Normal vaginal delivery, second degree lac, septal lac, received Rhogam Rh negative, antepartum 08/29/2024 Overview (12/29/2024): O NEG Received Rhogam- 10/21/2024 Resolved Problems Problem Noted Date Diagnosed Date Resolved Date PROM (premature rupture of membranes) 01/10/2025 01/12/2025 Anemia affecting i n second trimester 10/09/2024 01/12/2025 Vaginal septum 09/09/2024 01/12/2025 Overview (11/04/2024): Discussed plan for perineal massage [...] possible, but open to pain meds prn. Assessment & Plan (01/10/2025 9:55 PM EDT): Torn during vaginal delivery and resected. Progressive shortening of cervix 09/03/2024 01/12/2025 Overview (12/29/2024): 09/03- Cervix- 2.3cm long- Pt started on [...] is closed without funneling or dynamic changes. Vaginal progestin stopped at 36.6 The findings were conveyed to the patient by Dr. Jasso during the ultrasound- per patient plan is to continue vaginal progesterone. Assessment & Plan (09/03/2024 4:13 PM EDT): Prometrium started. Cultures sent. Return for cervical length is scheduled. ASA started as not given at IP. Encounters Date Type Department Care Team Description 02/25/2025 1:45 PM EDT Visit Obstetrics and Gynecology - [address] [phone] Dusty Denis CNM Routine follow-up (Primary Dx); Encounter for screening for maternal depression 02/11/2025 Telephone Obstetrics and Gynecology - [address] [phone] Chasity Oliveira MA 02/04/2025 10:00 AM EDT Office Visit Obstetrics and Gynecology - [address] [phone] Dusty Denis CNM Laceration of urethra, subsequent encounter (Primary Dx) 01/10/2025 5:02 PM EDT Anesthesia Event [facility] - [address] [phone] Andrey Grier DO 01/10/2025 12:27 PM EDT - 01/12/2025 1:43 PM EDT Hospital Encounter [facility] - [address] [phone] Drew Mistry MD Discharge Disposition: Home or Self Care 01/05/2025 8:45 AM EDT Routine Obstetrics and Gynecology - [address] [phone] Mary Dolan CNM Encounter for supervision of normal first in third trimester (Primary Dx); Anemia affecting in second trimester; Rh negative, antepartum; Progressive shortening of cervix; 39 weeks gestation of from Last 3 Months Immunizations Immunization Administration Dates Next Due DTaP (Infanrix) 6wks [...] drink = 0.6 oz pur e alcohol) Interpersonal Safety Answer Date Record ed Physical Abuse Unrecognized value 01/10/2025 Verbal Abuse Unrecognized value 01/10/2025 Comments No Sex and Gender Information Value Date Recorded Sex Assigned at Not on file Legal Sex Female 2:20 PM EST Gender Identity Not on file Sexual Orientation Not on file 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 Not on file Not on file No t on file Obstetrics History Para Term AB IAB SAB Ectopic Multiple Livin g Live Births 1 1 1 0 1 1 Date Outcome GA Total Labor Labor/2nd/3rd Weight Sex Type Anes PTL Marcelle A1 A5 Name Clin 2024 Term 39w 5d 12h 46m 11h 50m/0h 49m/0h 07m 3680 g (129.8 oz) F Vag-S pont Epidur al N Livin g 8 9 Tony beatty, JAIMEE Complications:None Delivery Location:[facility] Last Filed Vital Signs Vital Sign Reading Time Taken Comments Blood Pressure 118/70 02/25/2025 2:03 PM EDT Pulse 65 02/25/2025 2:03 PM EDT Temperature 36.8 C (98.2 F) 01/12/2025 8:25 AM EDT Respiratory Rate 12 02/25/2025 2:03 PM EDT Oxygen Saturation 99% 01/12/2025 8:25 AM EDT Inhaled Oxygen Concentration - - Weight 71.6 kg (157 lb 12.8 oz) 02/25/2025 2:03 PM EDT Height 156 cm (5' 1.42 ) 02/25/2025 2:03 PM EDT Body Mass Index 29.41 02/25/2025 2:03 PM EDT Plan of Treatment Health Maintenance Due Date Last Done Comments HPV Vaccines (1 - 3-dose series) 2014 Cervical Cancer Screening: Pap Smear 2020 Social Influencers of Health Screening 05/30/2024 Depression Screening 06/25/2024 COVID-19 Vaccine (3 - season) 2025 03/16/2021, 02/23/2021 Influenza Vaccine (#1) 2025 05/12/2022 DTaP,Tdap,and Td Vaccines (8 - Td or Tdap) 02/09/2031 02/09/2021, 01/31/2011, 02/07/2005, Additional history exists RSV Immunization Adult Patients (1 - 1-dose 75+ series) 2074 HIB Vaccines Completed 11/05/2000, 01/23, 1999, Additional history exists Hepatitis B Vaccines Completed 01/19/2001, 1999, 1999 IPV Vaccines Completed 02/07/2005, 10/25, 1999, Additional history exists MMR Vaccines Completed 02/07/2005, 11/05/2000 Varicella Vaccines Completed 04/12/2006, 09/19/2001 Hepatitis A Vaccines Completed 01/31/2011, 12/29/19 09 Meningococcal ACWY Vaccine Completed 04/12/2016, Meningococcal B Vaccine Completed 02/05/2018, 12/24 HIV Screening Completed 06/12/2024 Hepatitis C Screening Completed 06/12/2024, 024 Gonorrhea/Chlamydia Screening Discontinued 09/03/2024 Pneumococcal Vaccine: Pediatrics (0 to 5 Years) and At-Risk Patients (6 to 49 Years) Aged Out No longer eligible based on patient's age to complete this topic RSV Immunization Patients Under 20 months Aged Out No longer eligible based on patient's age to complete this topic Procedures Procedure Name Priority Date/Time Associated Diagnosis Comments EXTERNAL ULTRASOUND REPORT 01/13/2025 RHIG EVALUATION Routine 01/10/2025 11:58 PM EDT TH AN NERVE BLK LUMBAR EPIDURAL (NO CHARGE) Routine 01/10/2025 5:15 PM EDT CBC WITH AUTO DIFFERENTIAL STAT 01/10/2025 2:23 PM EDT TREPONEMA PALLIDUM ANTIBODY WITH REFLEX TO RPR AND PARTICLE AGGLUTINATION STAT 01/10/2025 2:23 PM EDT TYPE AND SCREEN STAT 01/10/2025 2:23 PM EDT CBC AND DIFFERENTIAL STAT 01/10/2025 2:23 PM EDT CHLAMYDIA TRACHOMATIS AND NEISSERIA GONORRHOEAE PCR Routine 09/03/2024 4:14 PM EDT Progressive shortening of cervix HEPATITIS C ANTIBODY WITH REFLEX TO MOLECULAR STUDY Routine 06/12/2024 1:46 PM EST First trimester HIV 1, 2 ANTIBODY, P24 ANTIGEN WITH REFLEX TO DIFFERENTIATION Routine 06/12/2024 1:46 PM EST First trimester from Last 3 Months or Most Recently Relevant to Health Maintenance Results * External Ultrasound Report (01/13/2025) Anatomical Region Laterality Modality Ultrasound us Provider Onbase IMG US PROCEDURES Final Resul t * RhIG evaluation (01/10/2025 11:58 PM EDT) Bleed Screen Negative 01/11/2025 4:19 AM EDT [facility] RhIG Candidate 1 Vial 300 mcg 01/11/2025 4:19 AM EDT [facility] Blood Venous blood specimen / Unknown Venipuncture / Unknown 01/10/2025 11:58 PM EDT 01/11/2025 12:36 AM EDT us Drew Mistry MD LAB BLOOD BANK TEST ORD ERABLES Edited Result - Final [facility] [address] [place] [address], * TH AN NERVE BLK LUMBAR EPIDURAL (NO CHARGE) (01/10/2025 5:15 PM EDT) Andrey Flores DO - 01/10/2025 5:15 PM EDT Andrey Grier DO 01/10/2025 5:50 PM Epidural Block Patient location during procedure: OB Start time: 01/10/2025 5:15 PM End time: 01/10/2025 5:40 PM Reason for block: labor epidural Staffing Performed: anesthesiologist Anesthesiologist: Andrey Grier DO Performed by: Andrey Grier DO Authorized by: Andrey Grier DO Preanesthetic Checklist Completed: patient identified, IV checked, risks and benefits discussed, surgical consent, monitors and equipment checked, pre-op evaluation and timeout performed Epidural Patient Position: sitting Monitoring: heart rate, continuous pulse ox and NIBP Approach: midline Vertebral Space: lumbar Lumbar Location: L3-4 Needle Needle type: Tuohy Needle gauge: 18 G Needle length: 8.5 cm Needle insertion depth: 5.5 cm Catheter at skin depth: 10.5 cm Test dose: negative and lidocaine 1.5% with epinephrine 1-to-200,000 Assessment Sensory level: T10 Events: negative aspiration for heme, no paresthesia on injection and incremental injection every 5 mL Additional Notes Patient consented prior to procedure. Seated with monitors on. Back was prepped and draped and procedure took place under sterile conditions. Skin wheal placed with Lidocaine 1% (Plain) infiltration. 18G Touhy needle placed. WARNER with saline at 5.5 cm. Catheter thread easily and left at 10.5 cm. NO Heme on aspiration ; NO CSF on aspiration; NO Paresthesias from either needle or catheter. Patient was bolused with 6 ml of 0.1% bupivacaine with 2 mcg/ml fentanyl off the epidural bag dilute down with 6 ml of NS. Patient with improved comfort with contractions bilaterally at the conclusion of this encounter. Procedure was tolerated well. Placed in CHAPO position subsequent to procedure completion. Andrey Grier DO ANESTHESIA ORDERABLES Final Res ult * Treponema pallidum antibody with reflex to RPR and particle agglutination (01/10/2025 2:23 PM EDT) T. Pallidum Antibodies Negative Negative LAB CHEMISTRY METHOD 01/10/2025 3:41 PM EDT [facility] Blood Venous blood specimen / Unknown Venipuncture / Unknown 01/10/2025 2:23 PM EDT 01/10/2025 2:56 PM EDT Rola MENENDEZ LAB BLOOD ORDERABLES Final R esult [facility] [address] [place] [address], * (ABNORMAL) CBC auto differential (01/10/2025 2:23 PM EDT) [facility] WBC 12.9(H) 4.8 - 10.8 K/mcL LAB HEMETOLOGY METHOD 01/10/2025 3:01 PM EDT [facility] RBC 4.30 3.80 - 4.80 M/mcL LAB HEMETOLOGY METHOD 01/10/2025 3:01 PM EDT [facility] Hemoglobin 12.7 11.5 - 16.0 g/dL LAB HEMETOLOGY METHOD 01/10[facility]2025 [facility] Hematocrit 37.3 35.0 - 47.0 % LAB HEMETOLOGY METHOD 01/10/2025 3:01 [facility] MCV 86.9 79.0 - 98.0 FL LAB HEMETOLOGY METHOD 01/10/2025 3:01 PM EDT [facility] MCH 29.6 27.0 - 32.0 pcg LAB HEMETOLOGY METHOD 01/10/2025 3:01 [facility] MCHC 34.0 32.0 - 37.0 g/dL LAB HEMETOLOGY METHOD 01/10/2025 3:01 PM [facility] RDW 12.3 11.0 - 15.0 % LAB HEMETOLOGY METHOD 01/10/2025 3:01 PM EDT [facility] Platelets 229 130 - 400 K/mcL LAB HEMETOLOGY METHOD 01/10/2025 3:01 PM [facility] MPV 11.3(H) 7.0 - 11.0 FL LAB HEMETOLOGY METHOD 01/10/2025 3:01 PM [facility] NRBC 0.0 <1.0 % LAB HEMETOLOGY METHOD 01/10/2025 3:01 PM [facility] NRBC Absolute 0.00 <0.10 K/mcL LAB HEMETOLOGY METHOD 01/10/2025 3:01 PM [facility] Neutrophils Relative 74.2 % LAB HEMETOLOGY METHOD 01/10/2025 3:01 PM [facility] Lymphocytes Relative 19.4 % LAB HEMETOLOGY METHOD 01/10/2025 3:01 PM [facility] Monocytes Relative 5.5 % LAB HEMETOLOGY METHOD 01/10/2025 3:01 PM [facility] Eosinophils Relative 0.2 % LAB HEMETOLOGY METHOD 01/10/2025 3:01 PM [facility] Basophils Relative 0.2 % LAB HEMETOLOGY METHOD 01/10/2025 3:01 PM [facility] Immature Granulocytes Relative 0.5 % LAB HEMETOLOGY METHOD 01/10/2025 3:01 PM [facility] Neutrophils Absolute 9.58(H) 1.50 - 7.00 K/mcL LAB HEMETOLOGY METHOD 01/10/2025 3:01 PM [facility] Lymphocytes Absolute 2.51 1.00 - 5.00 K/mcL LAB HEMETOLOGY METHOD 01/10/2025 3:01 PM [facility] Monocytes Absolute 0.71 0.20 - 1.00 K/mcL LAB HEMETOLOGY METHOD 01/10/2025 3:01 PM [facility] Eosinophils Absolute 0.03 0.00 - 0.50 K/mcL LAB HEMETOLOGY METHOD 01/10/2025 3:01 PM [facility] Basophils Absolute 0.02 0.00 - 0.20 K/mcL LAB HEMETOLOGY METHOD 01/10/2025 3:01 PM [facility] Immature Granulocytes Absolute 0.07(H) 0.00 - 0.03 K/[facility] LAB HEMETOLOGY METHOD 01/10/2025 3:01 PM EDT [facility] Blood Venous blood specimen / Unknown Venipuncture / Unknown 01/10/2025 2:23 PM EDT 01/10/2025 2:56 PM EDT Rola MENENDEZ LAB BLOOD ORDERABLES Final R esult Performing Organization Address City/[facility] [address]/ZIP Co de Phone Number [facility] [address] [place] [address], [place] [phone] * Type and screen (01/10/2025 2:23 PM EDT) ABO Group O 01/10/2025 3:58 PM EDT [facility] Rh Type Negative 01/10/2025 3:58 PM EDT [facility] Antibody Screen Negative 01/10/2025 3:58 PM EDT [facility] Blood Venous blood specimen / Unknown Venipuncture / Unknown 01/10/2025 2:23 PM EDT 01/10/2025 2:56 PM EDT Rola Huerta CNM LAB BLOOD BANK TEST ORDERABL ES Final Result Performing Organization Address [facility] [address]/ZIP Co de Phone Number [facility] [address] [place] [address], [place] [phone] * Chlamydia trachomatis and Neisseria gonorrhoeae molecular study (09/03/2024 4:14 PM EDT) Neisseria gonorrhoeae PCR Negative Negative LAB MOLECULAR DIAGNOSTICS METHOD 09/04/2024 8:46 AM EDT [facility] Chlamydia trachomatis PCR Negative Negative LAB MOLECULAR DIAGNOSTICS METHOD 09/04/2024 8:46 AM EDT [facility] Swab Cervix uteri structure / Unknown Non-blood Collection / Unknown 09/03/2024 4:14 PM EDT 09/03/2024 4:14 PM EDT Skye Bautista MD LAB MICROBIOLOGY - GENERAL ORDERABLES Final Result [facility] [address] [place] [address], [place] [phone] * Hepatitis C antibody with reflex to molecular study (06/12/2024 1:46 PM EST) HCV Ab Non Reactive Non Reactive [facility] 1 Blood Venous blood specimen / Unknown 06/12/2024 1:46 PM EST 06/12/2024 Narrative [facility] 1 - 06/13/2024 6:09 AM EST Performed at: [facility] [id number] Marine Architect: Delphine Ca MD, Phone: [phone] Ada [facility] [employer] LAB BLOOD ORDERABLES Final Resul t Performing Organization Address City/[facility] [address]/ZIP Co de Phone Number [facility] 1 * HIV 1,2 antibody, p24 antigen with reflex to differentiation (06/12/2024 1:46 PM EST) Pathologist [facility] HIV Screen 4th Generation wRfx Non Reactive Non Reactive [facility] 1 Comment: HIV-1/HIV-2 antibodies and HIV-1 p24 antigen were NOT detected. There is no laboratory evidence of HIV infection. HIV Negative Blood Venous blood specimen / Unknown 06/12/2024 1:46 PM EST 06/12/2024 Narrative [facility] 1 - 06/13/2024 6:09 AM EST Performed at: [facility] [id number] Marine Architect: Delphine Ca MD, Phone: [phone] Ada Donny [employer] LAB BLOOD ORDERABLES Final Resul t [facility] 1 from Last 3 Months or Most Recently Relevant to Health Maintenance Insurance [address] [place] [address] [facility] Advance Directives * Full Code - Confirmed (Latest Code Status on File) Date Activated Date Inactivated Comments 01/10/2025 1:39 PM 01/12/2025 3:[address] [facility] was ascertained in the following way: Code status discussion: discussion with patient To update the patient's code status, place a code status order. Do not modify or discontinue any currently active code status orders. Care Teams Actionscript Developer Relationship Specialty Start Date End Date Deborah Galeano FNP [address] [place] [address] PCP - General Nurse Practitioner 12/19/24
[2025-04-06 13:24] VITALS: BP 102/66; PULSE 69; RESP 12; TEMP 36.1; O2SAT 99; BMI 28.2
== END 2025-04-06 14:01 | disposition home or self-care (01) ==
LOC: HO.HMCFM 13:18
PROVIDERS: PCP Nurse Practitioner Family; Visit Provider Nurse Practitioner Family
DX: N91.2 Amenorrhea, unspecified (principal); D50.9 Iron deficiency anemia, unspecified; K59.00 Constipation, unspecified; M25.561 Pain in right knee; M25.562 Pain in left knee; Z28.21 Immunization not carried out because of patient refusal; Z32.02 Encounter for pregnancy test, result negative

== ENCOUNTER → 2025-04-06 13:17 | Outpatient (BNVA) | payer OTHER, SELFPAY | PROVIDERS: PCP Nurse Practitioner Family; Visit Provider Nurse Practitioner Family | DX: N91.2 Amenorrhea, unspecified (principal); D50.9 Iron deficiency anemia, unspecified; K59.00 Constipation, unspecified; M25.561 Pain in right knee; M25.562 Pain in left knee; Z28.21 Immunization not carried out because of patient refusal; Z32.02 Encounter for pregnancy test, result negative; Z13.31 Encounter for screening for depression; Z13.39 Encounter for screening examination for other mental health and behavioral disorders | CPT/HCPCS: 81025; 96127 ==